=== PATIENT | male | born 1965 | race Caucasian/White ===

== ENCOUNTER 2023-02-08 08:15 | Outpatient (OUT) | payer OTHER, SELFPAY ==
[2023-02-08 08:37] LABS: Basophils Percent Auto 0.4 % (0.2-2.0); Eosinophils Absolute Auto 0.3 10^3/uL (0.0-0.7); Eosinophils Percent Auto 3.4 % (0.9-7.0); Hematocrit 44.4 % (42.0-54.0); Hemoglobin 14.9 g/dL (14.0-18.0); Immature Granulocytes Abs Auto 0.02 10^3/uL (0.00-0.03); Immature Granulocytes Pct Auto 0.2 % (0.0-0.5); Lymphocytes Absolute Auto 2.6 10^3/uL (1.2-3.8); Lymphocytes Percent Auto 27.1 % (20.5-60.0); Mean Corpuscular HGB Conc 33.6 g/dL (29.9-35.2); Mean Corpuscular Hemoglobin 31.3 pg (25.9-34.0); Mean Corpuscular Volume 93.3 fL (80.0-94.0); Mean Platelet Volume 9.8 fL (9.5-13.5); Monocytes Absolute Auto 0.9 10^3/uL (0.3-0.8); Monocytes Percent Auto 8.9 % (1.7-12.0); Neutrophils Absolute Auto 5.8 10^3/uL (1.4-6.5); Platelet Count 466 10^3/uL (150-450); Red Blood Count 4.76 10^6/uL (4.70-6.10); Red Cell Distribution Width 11.9 % (11.0-15.0); White Blood Count 9.6 10^3/uL (4.0-11.0)
[2023-02-08 09:14] LABS: Estimated Average Glucose 171 mg/dL; Glycohemoglobin A1C 7.6 % (4.5-6.2)
[2023-02-08 10:18] LABS: Prostate Specific Antigen Scrn 0.56 ng/mL (<=4.00)
[2023-02-08 11:32] LABS: Alanine Aminotransferase 39 U/L (16-63); Albumin Globulin Ratio 0.9; Albumin Level 3.9 g/dL (3.4-5.0); Alkaline Phosphatase 40 U/L (46-116); Anion Gap 13.5; Aspartate Amino Transferase 14 U/L (15-37); BUN Creatinine Ratio 17.3; Bilirubin Direct 0.1 mg/dL (0.0-0.2); Bilirubin Total 0.4 mg/dL (0.2-1.0); Calcium 9.3 mg/dL (8.5-10.1); Carbon Dioxide 28.8 mmol/L (21.0-32.0); Chloride 103 mmol/L (98-107); Chol HDL Ratio 3.9; Cholesterol 157 mg/dL (<=200); Estimated GFR (African America >60 (>=60); Estimated GFR (Non-African Ame >60 (>=60); Globulin 4.3 g/dL; Glucose 162 mg/dL (74-106); HDL Cholesterol 40 mg/dL (40-60); LDL Cholesterol Calculated 87.4 mg/dL; Potassium 4.3 mmol/L (3.5-5.1); Sodium 141 mmol/L (136-145); Thyroid Stimulating Hormone 1.124 uIU/mL (0.358-3.740); Total Protein 8.2 g/dL (6.4-8.2); Triglycerides 148 mg/dL (<=150); VLDL CHOLESTEROL 29.6 mg/dL
== END 2023-02-08 08:16 | disposition home or self-care (01) ==
LOC: LAB 08:18
PROVIDERS: PCP Family Medicine; Visit Provider Family Medicine
DX: Z00.00 Encounter for general adult medical examination without abnormal findings (principal)
CPT/HCPCS: 36415; 80048; 80061; 80076; 83036; 84443; 85025; G0103

== ENCOUNTER 2023-08-19 07:25 | Outpatient (OUT) | payer OTHER, SELFPAY ==
--- OUTSIDE RECORDS SUMMARY | 2023-08-19 07:29 | XMS_ITS | CCD ---
Author Organization [facility] Care Team Providers Care Computer Game Programmer Name Role Phone KAROLINE MOSER Consulting Unavailable KAROLINE MOSER Attending Unavailable KAROLINE MOSER Admitting Unavailable KAROLINE MOSER Primary Care Unavailable KAROLINE MOSER Primary Care Unavailable KAROLINE MOSER Consulting Unavailable KAROLINE MOSER Attending Unavailable KAROLINE MOSER Admitting Unavailable Shirin Flanagan Unavailable JENNIFER SEAMAN Attending Unavailable KAROLINE MOSER Referring Unavailable WILLIAM LALA Attending Unavailable WILLIAM LALA Attending Unavailable KAROLINE MOSER Attending Unavailable Medications Current Medications Medication Drug Class(es) Dates Sig (Normalized) Sig (Original) acetaminophen 325 mg oral tablet (1 source) take 1 tablet by mouth every four hours Tylenol 325 MG 1 tablet as needed Orally every 4 hrs Active atorvastatin 40 mg oral tablet (1 source) HMG-CoA Reductase Inhibitor take 1 tablet by mouth every twenty-four hours Atorvastatin Calcium 40 MG 1 tablet Orally Once a day Active cetirizine hydrochloride 10 mg oral tablet (1 source) Histamine-1 Receptor Antagonist take 1 tablet by mouth every twenty-four hours Cetirizine HCl 10 MG 1 tablet Orally Once a day Active fluticasone propionate 0.5 mg/ml topical lotion (1 source) Corticosteroid Start: 03-28-2023 Fluticasone Propionate 0.05 % 2 sprays Nasally Once a day for 14 days Apply to the rash twice a day until the rash is gone and then apply for 2 more days Mar, Active lisinopril 20 mg oral tablet (1 source) Angiotensin Converting Enzyme Inhibitor take 1 tablet by mouth every twenty-four hours Lisinopril 20 MG 1 tablet Orally Once a day Active montelukast 10 mg oral tablet (1 source) Leukotriene Receptor Antagonist take 1 tablet by mouth every twenty-four hours Montelukast Sodium 10 MG 1 tablet Orally Once a day Active Multivitamin preparation (1 source) Multivitamin Active omeprazole 20 mg delayed release oral capsule (1 source) Proton Pump Inhibitor take 1 capsule by mouth once daily Omeprazole 20 MG 1 capsule 30 minutes before morning meal Orally Once a day Active terbinafine hydrochloride 10 mg/ml topical cream (1 source) Allylamine Antifungal Start: 03-28-2023 Terbinafine HCl 1 % 1 application Externally Once a day for 14 days Mar, Active Turmeric extract (1 source) Turmeric Active Vitamin B Complex (1 source) Vitamin B Comple x - as directed Orally Active Completed/Discontinued Medications Medication Drug Class(es) Dates Sig (Normalized) Sig (Original) Gentamicin Sulfate (ALF) (1 source) Start: 09-04-2013 take 1 drop(s) into the eye(s) three times daily as needed Garamycin 0.3 % 1 drop into affected eye Ophthalmic Three times a day for 7 days Aug, Not-Taking/PRN Problems Active Problems Problem Classification Problem Date Documented Da te Episodic/Chronic Diabetes mellitus with complications (4 sources) Type 2 diabetes mellitus with hyperglycemia; Translations: [TYPE 2 DM W/HYPERGLYCEMIA] Onset: 06-19-2022 Chronic Mycoses (1 source) Tinea cruris Episodic Other lower respiratory disease (1 source) Personal history of other diseases of the respiratory system Episodic Past or Other Problems Problem Classification Problem Date Documented Da te Episodic/Chronic Other screening for suspected conditions (not mental disorders or infectious disease) (1 source) Encounter for screening for malignant neoplasm of prostate; Translations: [ENC SCREEN MALIG NEOPLASM PROSTATE] Onset: 11-29-2021 Episodic Results Test Name Value Interpretation Reference Range Facil ity GLYCOHEMOGLOBIN A1Con 2022 ADA RECOMMENDATION SEE BELOW Normal [facility] Comment on above: Result Comment: ADA RECOMMENDED LIMIT 4.0 - 6.0 ADA THERAPEUTIC TARGET < 7.0 ACTION SUGGESTED > 7.0 Performed By: #### A 1C #### [facility] [address] [place], [place] [address] Dr. Natalie Espinoza Glucose [Mass/Vol] 174 mg/dL Normal [facility] Comment on above: Performed By: #### A 1C #### [facility] [address] [place] [address] Dr. Natalie Espinoza HbA1c (Bld) [Mass fraction] 7.7 % Critically high 4.5-6.2 [facility] Comment on above: Performed By: #### A 1C #### [facility] [address] [place] [address] Dr. Natalie Espinoza CBC AUTO DIFFon 11-24-2021 BASO # 0.1 103/ul Normal 0.0-0.1 [facility] Comment on above: Performed By: #### C BC #### [facility] [address] [place] [address] Dr. Natalie Espinoza Basophils/100 WBC (Bld) 0.6 % Normal 0.2-2.0 [facility] Comment on above: Performed By: #### C BC #### [facility] [address] [place] [address] Dr. Natalie Espinoza EO # 0.2 103/ul Normal 0.0-0.7 [facility] Comment on above: Performed By: #### C BC #### [facility] [address] [place] [address] Dr. Natalie Espinoza Eosinophils/100 WBC (Bld) 2.3 % Normal 0.9-7.0 [facility] Comment on above: Performed By: #### C BC #### [facility] [address] [place] [address] Dr. Natalie Espinoza Erythrocyte distribution width (RBC) [Ratio] 12.2 % Normal 11.0-15.0 [facility] Comment on above: Performed By: #### C BC #### [facility] [address] [place] [address] Dr. Natalie Espinoza Hematocrit (Bld) [Volume fraction] 42.1 % Normal 42.0-54.0 [facility] Comment on above: Performed By: #### C BC #### [facility] [address] [place] [address] Dr. Natalie Espinoza Hemoglobin (Bld) [Mass/Vol] 13.9 g/dL Critically low 14.0-18.0 [facility] Comment on above: Performed By: #### C BC #### [facility] [address] [place] [address] Dr. Natalie Espinoza IG # 0.03 10e3/ul Normal 0.00-0.03 [facility] Comment on above: Performed By: #### C BC #### [facility] [address] [place] [address] Dr. Natalie Espinoza IG % 0.3 % Normal 0.0-0.5 [facility] Comment on above: Performed By: #### C BC #### [facility] [address] [place] [address] Dr. Natalie Espinoza LYMPH # 3.3 103/ul Normal 1.2-3.8 [facility] Comment on above: Performed By: #### C BC #### [facility] [address] [place] [address] Dr. Natalie Espinoza Lymphocytes/100 WBC (Bld) 32.2 % Normal 20.5-60.0 [facility] Comment on above: Performed By: #### C BC #### [facility] [address] [place] [address] Dr. Natalie Espinoza MANUAL DIFF REQ NO Normal [facility] Comment on above: Performed By: #### C BC #### [facility] [address] [place] [address] Dr. Natalie Espinoza MCH (RBC) [Entitic mass] 30.9 pg Normal 25.9-34.0 [facility] Comment on above: Performed By: #### C BC #### [facility] [address] [place] [address] Dr. Natalie Espinoza MCHC (RBC) [Mass/Vol] 33.0 g/dL Normal 29.9-35.2 [facility] Comment on above: Performed By: #### C BC #### [facility] [address] [place] [address] Dr. Natalie Espinoza MCV (RBC) [Entitic vol] 93.6 fL Normal 80.0-94.0 [facility] Comment on above: Performed By: #### C BC #### [facility] [address] [place] [address] [address] Natalie Espinoza MONO # 1.1 103/ul Critically high 0.3-0.8 [facility] Comment on above: Performed By: #### C BC #### [facility] [address] [place] [address] Dr. Natalie Espinoza Monocytes/100 WBC (Bld) 10.9 % Normal 1.7-12.0 [facility] Comment on above: Performed By: #### C BC #### [facility] [address] [place] [address] Dr. Natalie Espinoza NEUT # 5.5 103/ul Normal 1.4-6.5 [facility] Comment on above: Performed By: #### C BC #### [facility] [address] [place] [address] Dr. Natalie Espinoza Neutrophils/100 WBC (Bld) 53.7 % Normal 43.0-75.0 [facility] Comment on above: Performed By: #### C BC #### [facility] [address] [place] [address] Dr. Natalie Espinoza Platelet mean volume (Bld) [Entitic vol] 11.2 fL Normal 9.5-13.5 [facility] Comment on above: Performed By: #### C BC #### [facility] [address] [place] [address] Dr. Natalie Espinoza PLT 423 103/ul Normal 150-450 [facility] Comment on above: Performed By: #### C BC #### [facility] [address] [place] [address] Dr. Natalie Espinoza RBC 4.50 106/ul Critically low 4.70-6.10 [facility] Comment on above: Performed By: #### C BC #### [facility] [address] [place] [address] Dr. Natalie Espinoza WBC 10.3 103/ul Normal 4.0-11.0 [facility] Comment on above: Performed By: #### C BC #### [facility] [address] [place] [address] Dr. Natalie Espinoza GLYCOHEMOGLOBIN A1Con 09-06- 2022 ADA RECOMMENDATION SEE BELOW Normal [facility] Comment on above: Result Comment: ADA RECOMMENDED LIMIT 4.0 - 6.0 ADA THERAPEUTIC TARGET < 7.0 ACTION SUGGESTED > 7.0 Performed By: #### A 1C #### [facility] [address] [place] [address] [address] Natalie Espinoza Glucose [Mass/Vol] 163 mg/dL Normal [facility] Comment on above: Performed By: #### A 1C #### [facility] [address] [place] [address] [address] Natalie Espinoza HbA1c (Bld) [Mass fraction] 7.3 % Critically high 4.5-6.2 [facility] Comment on above: Performed By: #### A 1C #### [facility] [address] [place] [address] Dr. Natalie Espinoza LIPID PROFILEon 11-24-2021 CHOL-HDL RATIO NORM SEE BELOW Normal [facility] Comment on above: Result Comment: 3.3 - 4.4 LOW RISK 4.4 - 7.1 AVERAGE RISK 7.1 - 11.0 MODERATE RISK >11.0 HIGH RISK Performed By: #### L IPID, LIVER, BMP, TSH #### [facility] [address] [place] [address] [address] Natalie Espinoza Cholesterol [Mass/Vol] 134 mg/dL Normal <=200 [facility] Comment on above: Performed By: #### L IPID, LIVER, BMP, TSH #### [facility] [address] [place] [address] [address] Natalie Espinoza Cholesterol in HDL [Mass/Vol] 33 mg/dL Critically low 40-60 [facility] Comment on above: Performed By: #### L IPID, LIVER, BMP, TSH #### [facility] [address] [place] [address] [address] Natalie Espinoza Cholesterol in LDL [Mass/Vol] 56.6 mg/dL Normal [facility] Comment on above: Performed By: #### L IPID, LIVER, BMP, TSH #### [facility] [address] [place] [address] [address] Natalie Espinoza Cholesterol.total/Cho lesterol in HDL [Mass ratio] 4.1 {ratio} Normal [facility] Comment on above: Performed By: #### L IPID, LIVER, BMP, TSH #### [facility] [address] [place] [address] [address] Natalie Espinoza HDL NORMAL > or = 60 mg/dl - LOW CARDIOVASCULAR RISK <40 mg/dl - HIGH CARDIOVASCULAR RISK Normal [facility] Comment on above: Performed By: #### L IPID, LIVER, BMP, TSH #### [facility] [address] [place] [address] [address] Natalie Espinoza LDL CALC NORMAL SEE BELOW Normal [facility] Comment on above: Result Comment: <100 mg/dl OPTIMAL 100 - 129 mg/dl NEAR OR ABOVE OPTIMAL 130 - 159 mg/dl BORDERLINE HIGH 160 - 189 mg/dl HIGH >190 mg/dl VERY HIGH Performed By: #### L IPID, LIVER, BMP, TSH #### [facility] [address] [place] [address] [address] Natalie Espinoza Triglyceride [Mass/Vol] 222 mg/dL Critically high <=150 [facility] Comment on above: Performed By: #### L IPID, LIVER, BMP, TSH #### [facility] [address] [place] [address] [address] Natalie Espinoza VLDL CALC 44.4 mg/dL Normal [facility] Comment on above: Performed By: #### L IPID, LIVER, BMP, TSH #### [facility] [address] [place] [address] [address] Natalie Espinoza LIVER PROFILEon 11-24-2021 Albumin [Mass/Vol] 4.0 g/dL Normal 3.4-5.0 [facility] Comment on above: Performed By: #### L IPID, LIVER, BMP, TSH #### [facility] [address] [place] [address] [address] Natalie Espinoza Albumin/Globulin [Mass ratio] 1.1 {ratio} Normal [facility] Comment on above: Performed By: #### L IPID, LIVER, BMP, TSH #### [facility] [address] [place] [address] [address] Natalie Espinoza ALP [Catalytic activity/Vol] 61 U/L Normal 46-116 [facility] Comment on above: Performed By: #### L IPID, LIVER, BMP, TSH #### [facility] [address] [place] [address] [address] Natalie Espinoza ALT [Catalytic activity/Vol] 37 U/L Normal 16-63 [facility] Comment on above: Performed By: #### L IPID, LIVER, BMP, TSH #### [facility] [address] [place] [address] [address] Natalie Espinoza AST [Catalytic activity/Vol] 12 U/L Critically low 15-37 [facility] Comment on above: Performed By: #### L IPID, LIVER, BMP, TSH #### [facility] [address] [place] [address] Dr. Natalie Espinoza BILI, CONJUGATED 0.1 mg/dL Normal 0.0-0.2 [facility] Comment on above: Performed By: #### L IPID, LIVER, BMP, TSH #### [facility] [address] [place] [address] [address] Natalie Espinoza Bilirubin [Mass/Vol] 0.2 mg/dL Normal 0.2-1.0 [facility] Comment on above: Performed By: #### L IPID, LIVER, BMP, TSH #### [facility] [address] [place] [address] [address] Natalie Espinoza Globulin (S) [Mass/Vol] 3.8 g/dL Normal [facility] Comment on above: Performed By: #### L IPID, LIVER, BMP, TSH #### [facility] [address] [place] [address] [address] Natalie Espinoza Protein [Mass/Vol] 7.8 g/dL Normal 6.4-8.2 [facility] Comment on above: Performed By: #### L IPID, LIVER, BMP, TSH #### [facility] [address] [place] [address] [address] Natalie Espinoza PROF CHEM 8 (BAS METB)on Anion gap [Moles/Vol] 12.4 mmol/L Normal Th [facility] Comment on above: Performed By: #### L IPID, LIVER, BMP, TSH #### [facility] [address] [place] [address] [address] Natalie Espinoza Calcium [Mass/Vol] 9.1 mg/dL Normal 8.5-10.1 [facility] Comment on above: Performed By: #### L IPID, LIVER, BMP, TSH #### [facility] [address] [place] [address] [address] Natalie Espinoza Chloride [Moles/Vol] 105 mmol/L Normal 98-107 [facility] Comment on above: Performed By: #### L IPID, LIVER, BMP, TSH #### [facility] [address] [place] [address] Dr. Natalie Espinoza CO2 [Moles/Vol] 27.8 mmol/L Normal 21.0-32.0 [facility] Comment on above: Performed By: #### L IPID, LIVER, BMP, TSH #### [facility] [address] [place] [address] [address] Natalie Espinoza Creatinine [Mass/Vol] 1.09 mg/dL Normal 0.70-1.30 [facility] Comment on above: Performed By: #### L IPID, LIVER, BMP, TSH #### [facility] [address] [place] [address] Dr. Natalie Espinoza EGFR-AF TOGOLESE >60 Normal >=60 [facility] Comment on above: Performed By: #### L IPID, LIVER, BMP, TSH #### [facility] [address] [place] [address] Dr. Natalie Espinoza EGFR-NON AF TOGOLESE >60 Normal >=60 [facility] Comment on above: Performed By: #### L IPID, LIVER, BMP, TSH #### [facility] [address] [place] [address] [address] Natalie Espinoza Glucose [Mass/Vol] 199 mg/dL Critically high 74-106 T [facility] Comment on above: Performed By: #### L IPID, LIVER, BMP, TSH #### [facility] [address] [place] [address] [address] Natalie Espinoza Potassium [Moles/Vol] 4.2 mmol/L Normal 3.5-5.1 [facility] Comment on above: Performed By: #### L IPID, LIVER, BMP, TSH #### [facility] [address] [place] [address] Dr. Natalie Espinoza Sodium [Moles/Vol] 141 mmol/L Normal 136-145 [facility] Comment on above: Performed By: #### L IPID, LIVER, BMP, TSH #### [facility] [address] [place] [address] [address] Natalie Espinoza Urea nitrogen [Mass/Vol] 12.0 mg/dL Normal 7.0-18.0 [facility] Comment on above: Performed By: #### L IPID, LIVER, BMP, TSH #### [facility] [address] [place] [address] Dr. Natalie Espinoza Urea nitrogen/Creatinine [Mass ratio] 11.0 mg/mg Normal [facility] Comment on above: Performed By: #### L IPID, LIVER, BMP, TSH #### [facility] [address] [place] [address] Dr. Natalie Espinoza TSHon 11-24-2021 TSH 1.580 uIU/mL Normal 0.358-3.740 [facility] Comment on above: Performed By: #### L IPID, LIVER, BMP, TSH #### [facility] [address] [place] [address] Dr. Natalie Espinoza Vital Signs Date Time Vital Sign Value Performing Clinician Facility 03-28-2023 10:45-0500 Body height 180.34 cm Shirin Flanagan Other [facility] Other 03-28-2023 10:45-0500 Body mass index (BMI) [Ratio] 36.31 kg/m2 Shirin Flanagan Other [facility] Other 03-28-2023 10:45-0500 Body temperature 97.8 [degF] Shirin Flanagan Other [facility] Other 03-28-2023 10:45-0500 Body weight 118.12 kg Shirin Flanagan Other [facility] Other 03-28-2023 10:45-0500 Respiratory rate 18 /min Shirin Flanagan Other [facility] Other 03-28-2023 10:45-0500 SaO2% (BldA) [Mass fraction] 99 % Shirin Senamond Other [facility] Other Encounters Encounter Date Encounter Type Care Provider Facility Start: 08-11-2023 End: 08-11-2023 ambulatory KAROLINE MOSER Not Available Start: 04-07-2023 End: 04-07-2023 ambulatory WILLIAM LALA Not Available Start: 03-30-2023 End: 03-30-2023 ambulatory JENNIFER SEAMAN Not Available Start: 03-28-2023 End: 03-28-2023 ambulatory Shirin Flanagan Other [facility] Other Start: 03-28-2023 Office outpatient ne w 20 minutes Shirin Flanagan [facility] Start: 03-03-2023 End: 03-03-2023 ambulatory WILLIAM LALA Not Available Start: 06-19-2022 End: 06-20-2022 ambulatory KAROLINE RODRÍGUEZERER Facility:[facility] Start: 11-29-2021 Encounter for genera l adult medical examination without abnormal findings KAROLINE MOSER [facility] Start: 11-24-2021 End: 11-25-2021 ambulatory KAROLINE A ANNEERER Facility:[facility] Start: 11-24-2021 End: 11-25-2021 Encounter for general adult medical examination without abnormal findings KAROLINE MOSER Facility:[facility] Procedures Date Procedure Procedure Detail Performing Clinician Start: 09-06-2022 PSA screening KAROLINE NADE RER Comment on above: Performed By: #### P [facility] #### [facility] [address] [place], [place] [address] Dr. Natalie Espinoza Payers Date Payer Category Payer Unknown [id number] 2.16.8 [id number] 1965 Unknown [id number] 2.16.84 [id number] 1965 Unknown [id number] 2.16.84 [id number] 1965 Unknown [id number] 2.16.84 [id number] 1965 Unknown [id number] 2.16.84 [id number] 1965 Unknown [id number] 2.16.84 [id number] 1965 Unknown [id number] 1959 Unknown [id number] 1959 Unknown [id number] Social History Date Type Detail Facility Unknown if ever smoked [facility] Other Sex Assigned At Sex Assigned At Bir th [facility] Other Evaluation note 03-28-2023 Note Date & Type Note Facility 03-28-2023 Evaluation note Encounter Date Diagnosis Assessment Notes Mar, History of sinusitis (ICD-10 - Z87.09) Drink plenty fluids, get plenty of rest. Use the fluticasone nasal spray as prescribed until you see your ENT. Follow-up with your ENT as scheduled. Use the terbinafine cream as prescribed for the rash in your groin area. Follow-up with your family physician if no improvement in this rash in 2 to 3 days. Mar, Tinea cruris (ICD-10 - B35.6) [facility] material was printed [facility] Other History general Narrative - Reported Note Date & Type Note Facility History general Narrative - Reported Type Medical History high blood pressure Medical History high cholesterol Surgical History hand surgery right thumb Hospitalization History See Above [facility] Other Summary Purpose Family History No Family History Records FoundNo Family History Records Found Advance Directives No Advanced Directives Records FoundNo Advanced Directives Records Found Additional Source Comments (unrecognized sect ion and content) No Status Records FoundNo Status Records Found INFORMATION SOURCE (unrecogn ized section and content) DATE CREATED AUTHOR 06/26/2022 [facility] DATE CREATED AUTHOR AUTHOR'S ORGANIZ ATION 08/14/2023 [facility] EPIC REASON FOR VISIT (unrecogniz ed section and content) NAUSEA, COUGH, SINUS CONGEST ION, POSS ABCESS INNER THIGH FOR RECORDS PERTAINING TO PATIENTS WHO ARE OR HAVE BEEN ENROLLED IN A CHEMICAL DEPENDENCY/SUBSTANCEABUSE PROGRAM, SOME INFORMATION MAY BE OMITTED. This clinical summary was aggregated from multiple sources. Caution should be exercised in using it in the provision of clinical care. This summary normalizes information from multiple sources, and as a consequence, information in this document may materially change the coding, format and clinical context of patient data. In addition, data may be omitted in some cases. CLINICAL DECISIONS SHOULD BE BASED ON THE PRIMARY CLINICAL RECORDS. [employer] provides no warranty or guarantee of the accuracy or completeness of information in this document.
[2023-08-19 08:04] LABS: Microalbumin Urine Random <1.3 mg/dL (<=30.0)
[2023-08-19 09:27] LABS: Estimated Average Glucose 151 mg/dL; Glycohemoglobin A1C 6.9 % (4.5-6.2)
== END 2023-08-19 07:26 | disposition home or self-care (01) ==
LOC: LAB 07:27
PROVIDERS: PCP Family Medicine; Visit Provider Family Medicine
DX: E11.65 Type 2 diabetes mellitus with hyperglycemia (principal)
CPT/HCPCS: 36415; 82043; 83036

== ENCOUNTER 2024-02-17 07:34 | Outpatient (OUT) | payer OTHER, SELFPAY ==
--- OUTSIDE RECORDS SUMMARY | 2024-02-17 07:39 | XMS_ITS | CCD ---
Author Organization [facility] Care Team Providers Care Hospice Educator Name Role Phone WALTER MOSER Consulting Unavailable WALTER MOSER Attending Unavailable EHSAN, WALTER Ceballos Admitting Unavailable EHSAN, WALTER Ceballos Primary Care Unavailable EHSAN, WALTER Ceballos Primary Care Unavailable WALTER MOSER Consulting Unavailable EHSAN, WALTER Ceballos Attending Unavailable EHSAN, WALTER Ceballos Admitting Unavailable Shirin Flanagan Unavailable JENNIFER SEAMAN Attending Unavailable WALTER MOSER Referring Unavailable WILLIAM LALA Attending Unavailable WILLIAM LALA Attending Unavailable EHSAN, WALTER Attending Unavailable EHSAN, WALTER Attending Unavailable Walter Moser MD Primary Care Provider Medications Current Medications Medication Drug Class(es) Dates Sig (Normalized) Sig (Original) acetaminophen 325 mg oral tablet (1 source) take 1 tablet by mouth every four hours Tylenol 325 MG 1 tablet as needed Orally every 4 hrs Active amoxicillin 875 mg / clavulanate 125 mg oral tablet (2 sources) Penicillin-class Antibacterial Start: 01-31-2024 End: 02-10-2024 take 1 tablet by mouth in the morning amoxicillin-clavul anate (Augmentin) 875-125 MG tablet Indications: Acute non-recurrent pansinusitis Take 1 tablet (875 mg) by mouth in the morning and 1 tablet (875 mg) before bedtime. Do all this for 10 days. 20 tablet 01/31/2024 02/10/2024 Active atorvastatin 40 mg oral tablet (4 sources) HMG-CoA Reductase Inhibitor Start: 11-14-2023 take 1 tablet by mouth at bedtime atorvastatin (Lipitor) 40 MG tablet Indications: Dyslipidemia (CMS/HCC) TAKE 1 TABLET BY MOUTH AT BEDTIME 30 tablet 5 11/14/2023 Active take 1 tablet by germán th every twenty-four hours Atorvastatin Calcium 40 MG 1 tablet Oral ly Once a day Active cetirizine hydrochloride 10 mg oral tablet (4 sources) Histamine-1 Receptor Antagonist take 1 tablet by mouth in the morning cetirizine (ZyrTEC) 10 MG tablet Take 10 mg by mouth in the morning. Active fluticasone propionate 0.5 mg/ml topical lotion (1 source) Corticosteroid Start: 03-28-19 Fluticasone Propionate 0.05 % 2 sprays Nasally Once a day for 14 days Apply to the rash twice a day until the rash is gone and then apply for 2 more days Mar, Active ipratropium bromide 0.042 mg/actuat metered dose nasal spray (5 sources) Anticholinergic Start: 01-31-20 take 2 spray(s) nasal route in the morning, then take 2 spray(s) nasal route in the evening, then take 2 spray(s) nasal route at bedtime ipratropium (Atrovent) 0.06 % nasal spray Indications: Vasomotor rhinitis Administer 2 sprays into each nostril in the morning and 2 sprays in the evening and 2 sprays before bedtime. 45 mL 5 01/31/2024 Active Start: 01-11-2024 End: 01-31-2024 take 2 spray(s) nasal route once daily at bedtime ipratropium (Atrovent) 0.06 % nasal spray Indications: Vasomotor rhinitis INSTILL 2 SPRAYS INTO EACH NOSTRIL EVERY MORNING AND EVERY EVENING AND EVERY NIGHT AT BEDTIME 15 mL 5 01/11/2024 01/31/2024 Discontinued (Reorder) montelukast 10 mg oral tablet (4 sources) Leukotriene Receptor Antagonist Start: 01-17-2024 take 1 tablet by mouth at bedtime montelukast (Singulair) 10 MG tablet Indications: Seasonal allergic rhinitis due to pollen Take 1 tablet (10 mg) by mouth at bedtime 30 tablet 1 01/17/2024 Active take 1 tablet by germán th every twenty-four hours Montelukast Sodium 10 MG 1 tablet Orally Once a day Active Multivitamin preparation (1 source) Multivitamin Act adela omeprazole 20 mg delayed release oral tablet (4 sources) Proton Pump Inhibitor take 1 tablet by mouth before mealtime omeprazole OTC (PriLOSEC OTC) 20 MG EC tablet Take 20 mg by mouth in the morning. Take before meals. Do not crush, chew, or split. . Active take 1 capsule by mouth once dasha ly Omeprazole 20 MG 1 capsule 30 minutes [...] Dates Sig (Normalized) Sig (Original) Gentamicin Sulfate (GROUP HOME) (1 source) Start: 09-04-2013 take 1 drop(s) into the eye(s) three times daily as needed Garamycin 0.3 % 1 drop into affected eye Ophthalmic Three times a day for 7 days Aug, Not-Taking/PRN lisinopril 20 mg oral tablet (4 sources) Angiotensin Converting Enzyme Inhibitor Start: 08-16-2023 End: 02-06-2024 take 1 tablet by mouth once daily lisinopril 20 MG tablet Indications: Benign hypertension (CMS/HCC) TAKE 1 TABLET BY MOUTH DAILY 30 tablet 5 08/16/2023 02/06/2024 Discontinued take 1 tablet by germán th every twenty-four hours Lisinopril 20 MG 1 tablet Orally Once a day Active predniSONE 50 mg oral tablet (2 sources) Start: 01-31-2024 End: 02-06-2024 take 1 tablet by mouth once daily predniSONE (Deltasone) 50 MG tablet Indications: Acute non-recurrent pansinusitis Take 1 tablet (50 mg) by mouth Daily for 6 days 6 tablet 01/31/2024 02/06/2024 Problems Active Problems Problem Classification Problem Date Documented Date Episodic/Chronic Diabetes mellitus with complications (9 sources) Type 2 diabetes mellitus with hyperglycemia; Translations: [Hyperglycemia due to type 2 diabetes mellitus] Onset: 06-19-2022 Chronic Disorders of lipid metabolism (5 sources) Dyslipidemia; Translations: [Hyperlipidemia, unspecified] Onset: 01-31-2024 01-31-2024 Chronic Esophageal disorders (3 sources) Gastroesophageal reflux disease; Translations: [Gastro-esophageal reflux disease without esophagitis] Onset: 02-17-2023 02-17-2023 Chronic Essential hypertension (3 sources) Benign hypertension; Translations: [Essential (primary) hypertension] Onset: 02-17-2023 02-17-2023 Chronic Mycoses (1 source) Tinea cruris Episodic Other lower respiratory disease (1 source) Personal history of other diseases of the respiratory system Episodic Other nutritional; endocrine; and metabolic disorders (5 sources) Severe obesity; Translations: [Class 2 severe obesity due to excess calories with serious comorbidity and body mass index (BMI) of 35.0 to 35.9 in adult] Onset: 01-31-2024 01-31-2024 Chronic Other upper respiratory disease (3 sources) Allergic rhinitis due to pollen; Translations: [Allergic rhinitis due to pollen] Onset: 02-17-2023 02-17-2023 Chronic Other upper respiratory disease (5 sources) Vasomotor rhinitis; Translations: [Vasomotor rhinitis] Onset: 03-30-2023 03-30-2023 Chronic Other upper respiratory infections (5 sources) Acute pansinusitis; Translations: [Acute pansinusitis, unspecified] Onset: 01-31-2024 01-31-2024 Episodic Spondylosis; intervertebral disc disorders; other back problems (3 sources) Degeneration of lumbar intervertebral disc; Translations: [DDD (degenerative disc disease), lumbar] Onset: 02-17-2023 02-17-2023 Chronic Past or Other Problems Problem Classification Problem Date Documented Da te Episodic/Chronic Acquired foot deformities (3 sources) Acquired pes planus; Translations: [Flat foot [pes planus] (acquired), unspecified foot] Onset: 02-17-2023 02-17-2023 Episodic Other screening for suspected conditions (not mental disorders or infectious disease) (1 source) Encounter for screening for malignant neoplasm of prostate; Translations: [ENC SCREEN MALIG NEOPLASM PROSTATE] Onset: 11-29-2021 Episodic Results Test Name Value Interpretation Reference Range Facil ity GLYCOHEMOGLOBIN A1Con 2022 ADA RECOMMENDATION SEE BELOW Normal [facility] Comment on above: Result Comment: ADA RECOMMENDED LIMIT 4.0 - 6.0 ADA THERAPEUTIC TARGET < 7.0 ACTION SUGGESTED > 7.0 Performed By: #### A 1C #### [facility] [address] [place] [address] Dr. Natalie Espinoza Glucose [Mass/Vol] 174 mg/dL Normal [facility] Comment on above: Performed By: #### A 1C #### [facility] [address] [place] [address] Dr. Natalie Espinoza HbA1c (Bld) [Mass fraction] 7.7 % Critically high 4.5-6.2 [facility] Comment on above: Performed By: #### A 1C #### [facility] [address] [place] [address] Dr. Natalie Espinoza CBC AUTO DIFFon 11-24-2021 BASO # 0.1 103/ul Normal 0.0-0.1 [facility] Comment on above: Performed By: #### C BC #### [facility] [address] [place] [address] Dr. Natalie Espinoza Basophils/100 WBC (Bld) 0.6 % Normal 0.2-2.0 [facility] Comment on above: Performed By: #### C BC #### [facility] [address] [place] [address] Dr. Natalie Espinoza EO # 0.2 103/ul Normal 0.0-0.7 [facility] Comment on above: Performed By: #### C BC #### [facility] [address] [place] [address] Dr. Natalie Espinoza Eosinophils/100 WBC (Bld) 2.3 % Normal 0.9-7.0 [facility] Comment on above: Performed By: #### C BC #### [facility] [address] [place] [address] Dr. Natalie Espinoza Erythrocyte distribution width (RBC) [Ratio] 12.2 % Normal 11.0-15.0 [facility] Comment on above: Performed By: #### C BC #### [facility] [address] [place] [address] Dr. Natalie Espinoza Hematocrit (Bld) [Volume fraction] 42.1 % Normal 42.0-54.0 [facility] Comment on above: Performed By: #### C BC #### [facility] [address] [place] [address] Dr. Natalie Espinoza Hemoglobin (Bld) [Mass/Vol] 13.9 g/dL Critically low 14.0-18.0 [facility] Comment on above: Performed By: #### C BC #### [facility] [address] [place] [address] Dr. Natalie Espinoza IG # 0.03 10e3/ul Normal 0.00-0.03 [facility] Comment on above: Performed By: #### C BC #### [facility] [address] [place] [address] Dr. Natalie Espinoza IG % 0.3 % Normal 0.0-0.5 [facility] Comment on above: Performed By: #### C BC #### [facility] [address] [place] [address] Dr. Naatlie Espinoza LYMPH # 3.3 103/ul Normal 1.2-3.8 [facility] Comment on above: Performed By: #### C BC #### [facility] [address] [place] [address] Dr. Natalie Espinoza Lymphocytes/100 WBC (Bld) 32.2 % Normal 20.5-60.0 [facility] Comment on above: Performed By: #### C BC #### [facility] [address] [place] [address] Dr. Natalie Espinoza MANUAL DIFF REQ NO Normal [facility] Comment on above: Performed By: #### C BC #### [facility] [address] [place] [address] Dr. Natalie Espinoza MCH (RBC) [Entitic mass] 30.9 pg Normal 25.9-34.0 [facility] Comment on above: Performed By: #### C BC #### [facility] [address] [place] [address] Dr. Natalie Espinoza MCHC (RBC) [Mass/Vol] 33.0 g/dL Normal 29.9-35.2 [facility] Comment on above: Performed By: #### C BC #### [facility] [address] [place] [address] Dr. Natalie Espinoza MCV (RBC) [Entitic vol] 93.6 fL Normal 80.0-94.0 [facility] Comment on above: Performed By: #### C BC #### [facility] [address] [address] [address] Natalie Espinoza MONO # 1.1 103/ul Critically high 0.3-0.8 [facility] Comment on above: Performed By: #### C BC #### [facility] [address] [address] [address] Natalie Espinoza Monocytes/100 WBC (Bld) 10.9 % Normal 1.7-12.0 [facility] Comment on above: Performed By: #### C BC #### [facility] [address] [place] [address] Dr. Natalie Espinoza NEUT # 5.5 103/ul Normal 1.4-6.5 [facility] Comment on above: Performed By: #### C BC #### [facility] [address] [place] [address] Dr. Natalie Espinoza Neutrophils/100 WBC (Bld) 53.7 % Normal 43.0-75.0 [facility] Comment on above: Performed By: #### C BC #### [facility] [address] [place] [address] Dr. Natalie Espinoza Platelet mean volume (Bld) [Entitic vol] 11.2 fL Normal 9.5-13.5 [facility] Comment on above: Performed By: #### C BC #### [facility] [address] [place] [address] Dr. Natalie Espinoza PLT 423 103/ul Normal 150-450 [facility] Comment on above: Performed By: #### C BC #### [facility] [address] [place], [place] [id number] Dr. Natalie Espinoza RBC 4.50 106/ul Critically low 4.70-6.10 [facility] Comment on above: Performed By: #### C BC #### [facility] [address] [place] [address] Dr. Natalie Espinoza WBC 10.3 103/ul Normal 4.0-11.0 [facility] Comment on above: Performed By: #### C BC #### [facility] [address] [address] [address] Natalie Espinoza GLYCOHEMOGLOBIN A1Con 2021 ADA RECOMMENDATION SEE BELOW Normal [facility] Comment on above: Result Comment: ADA RECOMMENDED LIMIT 4.0 - 6.0 ADA THERAPEUTIC TARGET < 7.0 ACTION SUGGESTED > 7.0 Performed By: #### A 1C #### [facility] [address] [address] [address] Natalie Espinoza Glucose [Mass/Vol] 163 mg/dL Normal [facility] Comment on above: Performed By: #### A 1C #### [facility] [address] [place] [address] Dr. Natalie Espinoza HbA1c (Bld) [Mass fraction] 7.3 % Critically high 4.5-6.2 [facility] Comment on above: Performed By: #### A 1C #### [facility] [address] [place] [address] Dr. Natalie Espinoza LIPID PROFILEon 11-24-2021 CHOL-HDL RATIO NORM SEE BELOW Normal [facility] Comment on above: Result Comment: 3.3 - 4.4 LOW RISK 4.4 - 7.1 AVERAGE RISK 7.1 - 11.0 MODERATE RISK >11.0 HIGH RISK Performed By: #### L IPID, LIVER, BMP, TSH #### [facility] [address] [place] [address] Dr. Natalie Espinoza Cholesterol [Mass/Vol] 134 mg/dL Normal <=200 [facility] Comment on above: Performed By: #### L IPID, LIVER, BMP, TSH #### [facility] [address] [place] [address] Dr. Natalie Espinoza Cholesterol in HDL [Mass/Vol] 33 mg/dL Critically low 40-60 [facility] Comment on above: Performed By: #### L IPID, LIVER, BMP, TSH #### [facility] [address] [place] [address] Dr. Natalie Espinoza Cholesterol in LDL [Mass/Vol] 56.6 mg/dL Normal [facility] Comment on above: Performed By: #### L IPID, LIVER, BMP, TSH #### [facility] [address] [address] [address] Natalie Espinoza Cholesterol.total/Cho lesterol in HDL [Mass ratio] 4.1 {ratio} Normal [facility] Comment on above: Performed By: #### L IPID, LIVER, BMP, TSH #### [facility] [address] [address] [address] Natalie Espinoza HDL NORMAL > or = 60 mg/dl - LOW CARDIOVASCULAR RISK <40 mg/dl - HIGH CARDIOVASCULAR RISK Normal [facility] Comment on above: Performed By: #### L IPID, LIVER, BMP, TSH #### [facility] [address] [address] [address] Natalie Espinoza LDL CALC NORMAL SEE BELOW Normal [facility] Comment on above: Result Comment: <100 mg/dl OPTIMAL 100 - 129 mg/dl NEAR OR ABOVE OPTIMAL 130 - 159 mg/dl BORDERLINE HIGH 160 - 189 mg/dl HIGH >190 mg/dl VERY HIGH Performed By: #### L IPID, LIVER, BMP, TSH #### [facility] [address] [address] [address] Natalie Espinoza Triglyceride [Mass/Vol] 222 mg/dL Critically high <=150 [facility] Comment on above: Performed By: #### L IPID, LIVER, BMP, TSH #### [facility] [address] [address] [address] Natalie Espinoza VLDL CALC 44.4 mg/dL Normal [facility] Comment on above: Performed By: #### L IPID, LIVER, BMP, TSH #### [facility] [address] [address] [address] Natalie Espinoza LIVER PROFILEon 11-24-2021 Albumin [Mass/Vol] 4.0 g/dL Normal 3.4-5.0 [facility] Comment on above: Performed By: #### L IPID, LIVER, BMP, TSH #### [facility] [address] [address] [address] Natalie Espinoza Albumin/Globulin [Mass ratio] 1.1 {ratio} Normal [facility] Comment on above: Performed By: #### L IPID, LIVER, BMP, TSH #### [facility] [address] [address] [address] Natalie Espinoza ALP [Catalytic activity/Vol] 61 U/L Normal 46-116 [facility] Comment on above: Performed By: #### L IPID, LIVER, BMP, TSH #### [facility] [address] [address] [address] Natalie Espinoza ALT [Catalytic activity/Vol] 37 U/L Normal 16-63 [facility] Comment on above: Performed By: #### L IPID, LIVER, BMP, TSH #### [facility] [address] [place] [address] Dr. Natalie Espinoza AST [Catalytic activity/Vol] 12 U/L Critically low 15-37 [facility] Comment on above: Performed By: #### L IPID, LIVER, BMP, TSH #### [facility] [address] [place] [address] Dr. Natalie Espinoza BILI, CONJUGATED 0.1 mg/dL Normal 0.0-0.2 [facility] Comment on above: Performed By: #### L IPID, LIVER, BMP, TSH #### [facility] [address] [place] [address] Dr. Natalie Espinoza Bilirubin [Mass/Vol] 0.2 mg/dL Normal 0.2-1.0 [facility] Comment on above: Performed By: #### L IPID, LIVER, BMP, TSH #### [facility] [address] [place] [address] Dr. Natalie Espinoza Globulin (S) [Mass/Vol] 3.8 g/dL Normal [facility] Comment on above: Performed By: #### L IPID, LIVER, BMP, TSH #### [facility] [address] [address] [address] Natalie Espinoza Protein [Mass/Vol] 7.8 g/dL Normal 6.4-8.2 [facility] Comment on above: Performed By: #### L IPID, LIVER, BMP, TSH #### [facility] [address] [address] [address] Natalie Espinoza PROF CHEM 8 (BAS METB)on Anion gap [Moles/Vol] 12.4 mmol/L Normal [facility] Comment on above: Performed By: #### L IPID, LIVER, BMP, TSH #### [facility] [address] [address] [address] Natalie Espinoza Calcium [Mass/Vol] 9.1 mg/dL Normal 8.5-10.1 [facility] Comment on above: Performed By: #### L IPID, LIVER, BMP, TSH #### [facility] [address] [address] [address] Natalie Espinoza Chloride [Moles/Vol] 105 mmol/L Normal 98-107 [facility] Comment on above: Performed By: #### L IPID, LIVER, BMP, TSH #### [facility] [address] [address] [address] Natalie Espinoza CO2 [Moles/Vol] 27.8 mmol/L Normal 21.0-32.0 [facility] Comment on above: Performed By: #### L IPID, LIVER, BMP, TSH #### [facility] [address] [address] [address] Natalie Espinoza Creatinine [Mass/Vol] 1.09 mg/dL Normal 0.70-1.30 [facility] Comment on above: Performed By: #### L IPID, LIVER, BMP, TSH #### [facility] [address] [address] [address] Natalie Espinoza EGFR-AF GUAMANIAN >60 Normal >=60 [facility] Comment on above: Performed By: #### L IPID, LIVER, BMP, TSH #### [facility] [address] [address] [address] Natalie Espinoza EGFR-NON AF GUAMANIAN >60 Normal >=60 [facility] Comment on above: Performed By: #### L IPID, LIVER, BMP, TSH #### [facility] [address] [address] [address] Natalie Espinoza Glucose [Mass/Vol] 199 mg/dL Critically high 74-106 [facility] Comment on above: Performed By: #### L IPID, LIVER, BMP, TSH #### [facility] [address] [address] [address] Natalie Espinoza Potassium [Moles/Vol] 4.2 mmol/L Normal 3.5-5.1 [facility] Comment on above: Performed By: #### L IPID, LIVER, BMP, TSH #### [facility] [address] [place] [address] Dr. Natalie Espinoza Sodium [Moles/Vol] 141 mmol/L Normal 136-145 [facility] Comment on above: Performed By: #### L IPID, LIVER, BMP, TSH #### [facility] [address] [place] [address] Dr. Natalie Espinoza Urea nitrogen [Mass/Vol] 12.0 mg/dL Normal 7.0-18.0 [facility] Comment on above: Performed By: #### L IPID, LIVER, BMP, TSH #### [facility] [address] [place] [address] Dr. Natalie Espinoza Urea nitrogen/Creatinine [Mass ratio] 11.0 mg/mg Normal [facility] Comment on above: Performed By: #### L IPID, LIVER, BMP, TSH #### [facility] [address] [place] [address] Dr. Natalie Espinoza TSHon 11-24-2021 TSH 1.580 uIU/mL Normal 0.358-3.740 [facility] Comment on above: Performed By: #### L IPID, LIVER, BMP, TSH #### [facility] [address] [place] [address] Dr. Natalie Espinoza Vital Signs Date Time Vital Sign Value Performing Clinician Facility 01-31-2024 15:39-0500 Body height 180.3 cm Walter Moser MD Work Phone: [facility] 01-31-2024 15:39-0500 Body mass index (BMI) [Ratio] 35.84 kg/m2 Walter Moser MD Work Phone: [facility] [employer] 01-31-2024 15:39-0500 Body temperature 96.4 [degF] Walter Moser MD Work Phone: [facility] 01-31-2024 15:39-0500 Body weight 116.57 kg Walter Moser MD Work Phone: [facility] 01-31-2024 15:39-0500 Diastolic blood pressure 72 mm[Hg] Walter Moser MD Work Phone: [facility] 01-31-2024 15:39-0500 Heart rate 84 /min Walter Moser MD Work Phone: [facility] 01-31-2024 15:39-0500 Respiratory rate 18 /min Walter Moser MD Work Phone: [facility] 01-31-2024 15:39-0500 SaO2% (BldA) [Mass fraction] 96 % Walter Moser MD Work Phone: [facility] 01-31-2024 15:39-0500 Systolic blood pressure 120 mm[Hg] Walter Moser MD Work Phone: [facility] [employer] 03-28-2023 10:45-0500 Body height 180.34 cm Shirin Flanagan Other [employer] Other 03-28-2023 10:45-0500 Body mass index (BMI) [Ratio] 36.31 kg/m2 Shirin Flanagan Other [employer] Other 03-28-2023 10:45-0500 Body temperature 97.8 [degF] Shirin Flanagan Other [employer] Other 03-28-2023 10:45-0500 Body weight 118.12 kg Shirin Flanagan Other [employer] Other 03-28-2023 10:45-0500 Respiratory rate 18 /min Shirin Flanagan Other [employer] Other 03-28-2023 10:45-0500 SaO2% (BldA) [Mass fraction] 99 % Shirin Flanagan Other [employer] Other Encounters Encounter Date Encounter Type Care Provider Facility Start: 01-31-2024 End: 01-31-2024 Periodic preventive med est patient 40-64yrs Walter Moser MD Work Phone: [facility] Comment on above: Annual physical exam (Primary Dx); Vasomotor rhinitis; Acute non-recurrent pansinusitis; Class 2 severe obesity due to excess calories with serious comorbidity and body mass index (BMI) of 35.0 to 35.9 in adult ([facility]); Type 2 diabetes mellitus with hyperglycemia, without long-term current use of insulin ([facility]); Dyslipidemia ([facility]) Start: 01-31-2024 End: 01-31-2024 ambulatory WALTER MOSER Not Available Start: 01-31-2024 End: 01-31-2024 Bamhananeo flowsananth Moser MD Work Phone: [facility] Start: 01-31-2024 End: 01-31-2024 Bamboo flowsheet Walter Moser MD Work Phone: [facility] Start: 01-31-2024 End: 01-31-2024 Patient encounter procedure Walter Moser MD Work Phone: [facility] Start: 08-11-2023 End: 08-11-2023 ambulatory WALTER MOSER Not Available Start: 04-07-2023 End: 04-07-2023 ambulatory WILLIAM LALA Not Available Start: 03-30-2023 End: 03-30-2023 ambulatory JENNIFER SEAMAN Not Available Start: 03-28-2023 End: 03-28-2023 ambulatory Shirin Flanagan Other [employer] Other Start: 03-28-2023 Office outpatient ne w 20 minutes Shirin Flanagan [facility] Start: 03-03-2023 End: 03-03-2023 ambulatory WILLIAM LALA Not Available Start: 06-19-2022 End: 06-20-2022 ambulatory WALTER MOSER Facility:[facility]1 Start: 11-29-2021 Encounter for genera l adult medical examination without abnormal findings WALTER MOSER [facility] Start: 11-24-2021 End: 11-25-2021 ambulatory WALTER RODRÍGUEZPAL Facility:[facility] Start: 11-24-2021 End: 11-25-2021 Encounter for general adult medical examination without abnormal findings WALTER Ceballos EHSAN Facility:[facility]1 Procedures Date Procedure Procedure Detail Performing Clinician Start: 11-24-2021 PSA screening WALTER KAUR Comment on above: Performed By: #### P SASC #### [facility] [address] [place] [address] Dr. Natalie Espinoza Start: 06-06-2019 Colonoscopy Walter castellanos MD Work Phone: Plan of Treatment Date Care Activity Detail Author Start: 06-05-2029 Screening for malign ant neoplasm of colon [facility] Start: 08-23-2024 Glaucoma screening Diabetes: R etinopathy Screening [facility] Start: 08-17-2024 Urine screening for protein Diabetes: Urine Protein Screening [facility] Start: 07-31-2024 End: 07-31-2024 Patient encounter procedure 07/31/2024 3:30 PM EDT Office Visit [facility] [address] [place] [id number] Walter Moser MD [address] [place] [address] [facility] Start: 02-18-2024 Hemoglobin A1c measurement Diabetes: Hemoglobin A1C [facility] Start: 01-31-2024 End: 01-30-2025 Basic metabolic 1998 panel - Serum or Plasma Basic metabolic panel Lab Routine Annual physical exam Expected: 01/31/2024 (Approximate), Expires: 01/30/2025 [facility] Comment on above: Expected: 01/31/2024 (Approximate), Expires: 01/30/2025 Start: 01-31-2024 End: 01-30-2025 CBC W Auto Differential panel - Blood CBC and differential Lab Routine Annual physical exam Expected: 01/31/2024 (Approximate), Expires: 01/30/2025 [facility] Comment on above: Expected: 01/31/2024 (Approximate), Expires: 01/30/2025 Start: 01-31-2024 End: 01-30-2025 Hemoglobin A1c/Hemoglobin.total in Blood Hemoglobin A1c Lab Routine Annual physical exam Expected: 01/31/2024 (Approximate), Expires: 01/30/2025 [facility] Work Phone: Comment on above: Expected: 01/31/2024 (Approximate), Expires: 01/30/2025 Start: 01-31-2024 End: 01-30-2025 Hepatic function 2000 panel - Serum or Plasma Hepatic function panel Lab Routine Annual physical exam Expected: 01/31/2024 (Approximate), Expires: 01/30/2025 [facility] Comment on above: Expected: 01/31/2024 (Approximate), Expires: 01/30/2025 Start: 01-31-2024 End: 01-30-2025 Lipid 1996 panel - Serum or Plasma Lipid panel Lab Routine Annual physical exam Expected: 01/31/2024 (Approximate), Expires: 01/30/2025 [facility] Comment on above: Expected: 01/31/2024 (Approximate), Expires: 01/30/2025 Start: 01-31-2024 End: 01-30-2025 Prostate specific Ag [Mass/volume] in Serum or Plasma PSA Lab Routine Annual physical exam Expected: 01/31/2024 (Approximate), Expires: 01/30/2025 [facility] Comment on above: Expected: 01/31/2024 (Approximate), Expires: 01/30/2025 Start: 01-31-2024 End: 01-30-2025 Thyrotropin [Units/volume] in Serum or Plasma TSH Lab Routine Annual physical exam Expected: 01/31/2024 (Approximate), Expires: 01/30/2025 [facility] Comment on above: Expected: 01/31/2024 (Approximate), Expires: 01/30/2025 Start: 11-20-2023 Influenza vaccination Influenza Vacc ine (#1) [facility] Start: 1965 Screening for malign ant neoplasm of colon [facility] Immunizations Immunization Date Immunization Notes Care Provider Fa cility 01-15-2022 Pneumococcal Conjuga te PCV 20 Walter Moser MD Work Phone: [facility] 01-15-2022 influenza virus vacc ine, unspecified formulation Walter Moser MD Work Phone: [facility] Payers Date Payer Category Payer Private Health Insurance [employer] [id number] 2022 Unknown [id number] 1965 Unknown [id number] 1965 Unknown [id number] 1965 Unknown [id number] 1965 Unknown [id number] 1965 Unknown [id number] 1965 Unknown [id number] 1965 Unknown [id number] 1959 Unknown [id number] 1959 Unknown [id number] Social History Date Type Detail Facility Unknown if ever smoked [employer] Other Start: 07-28-2023 End: 01-31-2024 Sex Assigned At [facility] Start: 02-17-2023 Tobacco smoking status IAIS Ex-smoker [facility] End: 03-21-2011 History of tobacco use Current smoker [facility] End: 03-21-2011 History of tobacco use Cigarette Smoker [facility] Start: 02-17-2023 Tobacco use and exposure Smokeless tobacco non-user [facility] Start: 01-31-2024 Alcoholic beverage intake Ex-drinker (finding) [facility] Start: 07-28-2023 End: 01-31-2024 History of Social function [facility] Do you belong to any clubs or organizations such as druze groups, unions, fraternal or athletic groups, or school groups? No [facility] Attends Club or Organization Meetings Not on file [facility] Are you now , , , , never or living with a partner? [facility] How often to you hav e a drink containing alcohol? 2-4 times a month [facility] How many standard dr inks containing alcohol do you have on a typical day? 1 or 2 [facility] How often do you hav e 6 or more drinks on 1 occasion? Less than monthly [facility] How hard is it for y ou to pay for the very basics like food, housing, medical care, and heating Not very hard [facility] Do you feel stress - tense, restless, nervous, or anxious, or unable to sleep at night because your mind is troubled all the time - these days [OSQ] Not at all [facility] The food that (I/we) bought just didn't last, and (I/we) didn't have money to get more. Never true [facility] Start: 1965 Sex assigned at Not on file [facility] History of Present illness Narrative 01-31-2024 Walter Moser MD - 01/31/2024 4:55 PM Dusty Moser MD - 01/31/2024 4:55 PM Dusty Moser MD - 01/31/2024 4:54 PM Dusty Moser MD - 01/31/2024 4:52 PM EST Note Date & Type Note Facility 01-31-2024 History of Presen t illness Narrative Associated Problem(s): Dyslipidemia ([facility]) Due for labs. Associated Problem(s): Type 2 diabetes mellitus with hyperglycemia, without long-term current use of insulin ([facility]) Due for A1C Associated Problem(s): Class 2 severe obesity due to excess calories with serious comorbidity and body mass index (BMI) of 35.0 to 35.9 in adult ([facility]) Weight down 12 pounds in past year. Discussed proper diet and regular aerobic exercise. Recommend Weight Watchers and need to limit calories and smaller portions. Need to increase activity and regular aerobic exercise several days a week for 30 minutes at a time. Associated Problem(s): Annual physical exam Due for labs. Discussed proper diet and regular aerobic exercise. Need aerobic exercise 5-6 days a week for 30 minutes at a time. Smaller portions and limit total calories. Colonoscopy every 10 years. Tetanus every 10 years. Advised not to smoke. Discussed daily Aspirin therapy. Associated Problem(s): Acute non-recurrent pansinusitis Take antibiotics BID for 10 days. Use prednisone for inflammation. Use sudafed or other decongestants as needed. Use Robitussin or Robitussin-DM for cough. Can use afrin for congestion but no longer than 3 days. Can use Mucinex to bring up phlegm. Use Motrin or Tylenol as needed for fever, aches, or pains. Increase fluid intake and rest. Should improve over next 5-7 days and if no better or worse call for re-evaluation. Images from the original note were not included. Subjective Patient ID: Broderick Palma is a 58 y.o. male who presents for Follow-up (6 m) and Sinusitis (Ongoing for about 4 weeks). Presents for annual PE. Weight down 12 pounds in last year. Active at work but no regular exercise or activity. Tries to watch diet and eat healthy. Increased fruits and vegetables. Smaller portions and limits snacking. Tries to limit total daily calories. Due for labs. C/o cough, congestion, and rhinorrhea x 4 weeks. Afebrile. Severe fatigue and no energy. Mild cough dry and nonproductive. Denies chest tightness or SOB. KAUFMAN and sinus pressure in forehead and cheeks along with postnasal drip. Ears plugged and popping. Sore throat and pain to swallow. Mild nausea. Denies recent sick contacts. Using OTC medication and mild relief. No improvement in symptoms since onset. Review of Systems Constitutional: Negative for fatigue. Respiratory: Negative for cough, shortness of breath and wheezing. Cardiovascular: Negative for chest pain and palpitations. Gastrointestinal: Negative for abdominal pain, diarrhea, nausea and vomiting. Genitourinary: Negative for dysuria. Objective Physical Exam Constitutional: General: He is not in acute distress. Appearance: Normal appearance. HENT: Head: Normocephalic. Right Ear: Tympanic membrane and ear canal normal. Left Ear: Tympanic membrane and ear canal normal. Eyes: Extraocular Movements: Extraocular movements intact. Pupils: Pupils are equal, round, and reactive to light. Cardiovascular: Rate and Rhythm: Normal rate and regular rhythm. Heart sounds: No murmur heard. No friction rub. No gallop. Pulmonary: Breath sounds: Normal breath sounds. No wheezing, rhonchi or rales. Abdominal: General: Bowel sounds are normal. There is no distension. Palpations: Abdomen is soft. Tenderness: There is no abdominal tenderness. There is no guarding or rebound. Musculoskeletal: General: Normal range of motion. Left lower leg: No edema. Neurological: General: No focal deficit present. Mental Status: He is alert. Cranial Nerves: No cranial nerve deficit. Deep Tendon Reflexes: Reflexes normal. Assessment/Plan Problem List Items Addressed This Visit Vasomotor rhinitis Relevant Medications ipratropium (Atrovent) 0.06 % nasal spray Annual physical exam - Primary Due for labs. Discussed proper diet and regular aerobic exercise. Need aerobic exercise 5-6 days a week for 30 minutes at a time. Smaller portions and limit total calories. Colonoscopy every 10 years. Tetanus every 10 years. Advised not to smoke. Discussed daily Aspirin therapy. Relevant Orders Hemoglobin A1c Basic metabolic panel CBC and differential Hepatic function panel Lipid panel PSA TSH Acute non-recurrent pansinusitis Take antibiotics BID for 10 days. Use prednisone for inflammation. Use sudafed or other decongestants as needed. Use Robitussin or Robitussin-DM for cough. Can use afrin for congestion but no longer than 3 days. Can use Mucinex to bring up phlegm. Use Motrin or Tylenol as needed for fever, aches, or pains. Increase fluid intake and rest. Should improve over next 5-7 days and if no better or worse call for re-evaluation. Relevant Medications amoxicillin-clavulanate (Augmentin) 875-125 MG tablet predniSONE (Deltasone) 50 MG tablet documented in this encounter [facility] Evaluation note 03-28-2023 Note Date & Type [...] Jock [facility] home care material was printed [employer] Other Evaluation note Note Date & Type Note Facility Evaluation note Diagnosis Type 2 diabetes mellitus with hyperglycemia, without long-term current use of insulin ([facility])- Primary Benign hypertension ([facility]) Essential hypertension, benign Gastroesophageal reflux disease without esophagitis Esophageal reflux Vasomotor rhinitis Allergic rhinitis, cause unspecified Annual physical exam- Primary Routine general medical examination at a health care facility Vasomotor rhinitis Allergic rhinitis, cause unspecified Acute non-recurrent pansinusitis Class 2 severe obesity due to excess calories with serious comorbidity and body mass index (BMI) of 35.0 to 35.9 in adult ([facility]) Type 2 diabetes mellitus with hyperglycemia, without long-term current use of insulin ([facility]) Dyslipidemia ([facility] Other and unspecified hyperlipidemia documented in this encounter [facility] History general Narrative - Reported Note Date & Type Note Facility History general Narrative - Reported Type Medical History high blood pressure Medical History high cholesterol Surgical History hand surgery right thumb Hospitalization History See Above [employer] Other Summary Purpose Family History No Family History Records FoundNo Family History Records Found Advance Directives No Advanced Directives Records FoundNo Advanced Directives Records Found Additional Source Comments (unrecognized sect ion and content) No Status Records FoundNo Status Records Found INFORMATION SOURCE (unrecogn ized section and content) DATE CREATED AUTHOR 06/26/2022 [facility] DATE CREATED AUTHOR AUTHOR'S ORGANIZ ATION 02/02/2024 [facility] EPIC REASON FOR VISIT (unrecogniz ed section and content) Reason Comments Follow-up 6 m Sinusitis Ongoing for about 4 weeks Care Teams (unrecognized sec tion and content) Hospice Educator Relationship Specialty Start Date End Date Walter Moser MD [address] [place] [address] PCP - General Family Medicine 08/11/23 Hospice Educator Relationship Specialty Start Date End Date Walter Moser MD [address] [place] [address] PCP - General Family Medicine 08/11/23 FOR RECORDS PERTAINING TO PATIENTS WHO ARE [...] BE BASED ON THE PRIMARY CLINICAL RECORDS. [facility] [employer] [facility]. provides no warranty or guarantee of the accuracy or completeness of information in this document.
[2024-02-17 08:00] LABS: Basophils Absolute Auto 0.1 10^3/uL (0.0-0.1); Basophils Percent Auto 0.6 % (0.2-2.0); Eosinophils Absolute Auto 0.4 10^3/uL (0.0-0.7); Eosinophils Percent Auto 4.4 % (0.9-7.0); Hematocrit 44.4 % (42.0-54.0); Hemoglobin 14.6 g/dL (14.0-18.0); Immature Granulocytes Abs Auto 0.02 10^3/uL (0.00-0.03); Immature Granulocytes Pct Auto 0.2 % (0.0-0.5); Lymphocytes Absolute Auto 2.8 10^3/uL (1.2-3.8); Lymphocytes Percent Auto 29.8 % (20.5-60.0); Mean Corpuscular HGB Conc 32.9 g/dL (29.9-35.2); Mean Corpuscular Hemoglobin 30.9 pg (25.9-34.0); Mean Corpuscular Volume 94.1 fL (80.0-94.0); Mean Platelet Volume 9.9 fL (9.5-13.5); Monocytes Percent Auto 10.9 % (1.7-12.0); Neutrophils Absolute Auto 5.1 10^3/uL (1.4-6.5); Neutrophils Percent Auto 54.1 % (43.0-75.0); Platelet Count 427 10^3/uL (150-450); Red Blood Count 4.72 10^6/uL (4.70-6.10); Red Cell Distribution Width 12.3 % (11.0-15.0); White Blood Count 9.5 10^3/uL (4.0-11.0)
[2024-02-17 08:26] LABS: Estimated Average Glucose 171 mg/dL; Glycohemoglobin A1C 7.6 % (4.5-6.2)
[2024-02-17 09:24] LABS: Alanine Aminotransferase 39 U/L (16-63); Albumin Globulin Ratio 0.9; Albumin Level 3.4 g/dL (3.4-5.0); Alkaline Phosphatase 42 U/L (46-116); Anion Gap 12.9; Aspartate Amino Transferase 17 U/L (15-37); BUN Creatinine Ratio 20.8; Bilirubin Direct 0.1 mg/dL (0.0-0.2); Bilirubin Total 0.4 mg/dL (0.2-1.0); Calcium 8.8 mg/dL (8.5-10.1); Carbon Dioxide 27.3 mmol/L (21.0-32.0); Chloride 108 mmol/L (98-107); Chol HDL Ratio 3.8; Cholesterol 165 mg/dL (<=200); Estimated GFR (African America >60 (>=60 mL/min/1.73m^2); Estimated GFR (Non-African Ame >60 (>=60 mL/min/1.73m^2); Globulin 3.8 g/dL; Glucose 146 mg/dL (74-106); HDL Cholesterol 44 mg/dL (40-60); LDL Cholesterol Calculated 98.2 mg/dL; Potassium 4.2 mmol/L (3.5-5.1); Sodium 144 mmol/L (136-145); Thyroid Stimulating Hormone 1.366 uIU/mL (0.358-3.740); Total Protein 7.2 g/dL (6.4-8.2); Triglycerides 114 mg/dL (<=150); VLDL CHOLESTEROL 22.8 mg/dL
[2024-02-17 11:49] LABS: Prostate Specific Antigen Scrn 0.82 ng/mL (<=4.00)
== END 2024-02-17 07:35 | disposition home or self-care (01) ==
LOC: LAB 07:37
PROVIDERS: PCP Family Medicine; Visit Provider Family Medicine
DX: Z00.00 Encounter for general adult medical examination without abnormal findings (principal)
CPT/HCPCS: 36415; 80048; 80061; 80076; 83036; 84443; 85025; G0103

== ENCOUNTER 2024-08-24 07:44 | Outpatient (OUT) | payer OTHER, SELFPAY ==
--- OUTSIDE RECORDS SUMMARY | 2024-08-24 07:48 | XMS_ITS | CCD ---
Author Organization [facility] Care Team Providers Care Chair Springer Name Role Phone KAROLINE MOSER Consulting Unavailable KAROLINE MOSER Attending Unavailable KAROLINE MOSER Admitting Unavailable KAROLINE MOSER Primary Care Unavailable KAROLINE MOSER Primary Care Unavailable KAROLINE MOSER Consulting Unavailable KAROLINE MOSER Attending Unavailable KAROLINE MOSER Admitting Unavailable Shirin Flanagan Unavailable Karoline Moser MD Primary Care Provider [phone] KAROLINE MOSER Attending Unavailable KAROLINE MOSER Attending Unavailable KAROLINE MOSER Attending Unavailable Medications [...] 02/10/2024 Active atorvastatin 40 mg oral tablet (10 sources) HMG-CoA Reductase Inhibitor Start: 03-12-2024 End: 05-17-2024 take 1 tablet by mouth at bedtime atorvastatin (Lipitor) 40 MG tablet Indications: Dyslipidemia (CMS/HCC) TAKE 1 TABLET BY MOUTH AT BEDTIME 90 tablet 3 05/17/2024 Active Start: 11-14-2023 take 1 tablet by germán th at bedtime atorvastatin (Lipitor) 40 MG tablet Indications: Dyslipidemia (CMS/HCC) TAKE 1 TABLET BY MOUTH AT BEDTIME 30 tablet 5 11/14/2023 Active take 1 tablet by germán th every twenty-four hours Atorvastatin Calcium 40 MG 1 tablet Orally Once a day Active cetirizine hydrochloride 10 mg oral tablet (9 sources) Histamine-1 Receptor Antagonist take 1 tablet [...] bromide 0.042 mg/actuat metered dose nasal spray (10 sources) Anticholinergic Start: 01-31-20 take 2 spray(s) [...] 15 mL 5 01/11/2024 01/31/2024 Discontinued (Reorder) lisinopril 20 mg oral tablet (9 sources) Angiotensin Converting Enzyme Inhibitor Start: 03-12-2024 take 1 tablet by mouth once daily lisinopril 20 MG tablet Indications: Benign hypertension (CMS/HCC) TAKE 1 TABLET BY MOUTH DAILY 30 tablet 5 03/12/2024 Active Start: 08-16-2023 End: 02-06-2024 take 1 tablet by mouth once daily lisinopril 20 MG tablet Indications: Benign hypertension (CMS/HCC) TAKE 1 TABLET BY MOUTH DAILY 30 tablet 5 02/06/2024 Active take 1 tablet by germán th every twenty-four hours Lisinopril 20 MG 1 tablet Orally Once a day Active montelukast 10 mg oral tablet (9 sources) Leukotriene Receptor Antagonist Start: 07-18-2024 take 1 tablet by mouth at bedtime montelukast (Singulair) 10 MG tablet Indications: Seasonal allergic rhinitis due to pollen TAKE 1 TABLET(10 MG) BY MOUTH AT BEDTIME 30 tablet 1 07/18/2024 Active Start: 03-19-2024 take 1 tablet by germán th at bedtime montelukast (Singulair) 10 MG tablet Indications: Seasonal allergic rhinitis due to pollen TAKE 1 TABLET(10 MG) BY MOUTH AT BEDTIME 30 tablet 1 03/19/2024 Active Start: 01-17-2024 take 1 tablet by germán th at bedtime montelukast (Singulair) 10 MG tablet Indications: Seasonal allergic rhinitis due to pollen Take 1 tablet (10 mg) by mouth at bedtime 30 tablet 1 01/17/2024 Active take 1 tablet by germán th every twenty-four hours Montelukast Sodium 10 MG 1 tablet Orally Once a day Active Multivitamin preparation (1 source) Multivitamin Act adela omeprazole 20 mg delayed release oral tablet (9 sources) Proton Pump Inhibitor take 1 tablet [...] Dates Sig (Normalized) Sig (Original) Gentamicin Sulfate (SHELTER) (1 source) Start: 09-04-2013 take 1 drop(s) into the eye(s) three times daily as needed Garamycin 0.3 % 1 drop into affected eye Ophthalmic Three times a day for 7 days Aug, Not-Taking/PRN predniSONE 50 mg oral tablet (2 sources) Start: 01-31-2024 End: 02-06-2024 take 1 tablet by mouth once daily predniSONE (Deltasone) 50 MG tablet Indications: Acute non-recurrent pansinusitis Take 1 tablet (50 mg) by mouth Daily for 6 days 6 tablet 01/31/2024 02/06/2024 Problems Active Problems Problem Classification Problem Date Documented Date Episodic/Chronic Diabetes mellitus with complications (16 sources) Type 2 diabetes mellitus with hyperglycemia; Translations: [Hyperglycemia due to type 2 diabetes mellitus] Onset: 06-19-2022 Chronic Disorders of lipid metabolism (11 sources) Dyslipidemia; Translations: [Hyperlipidemia, unspecified] Onset: 01-31-2024 01-31-2024 Chronic Esophageal disorders (10 sources) Gastroesophageal reflux disease; Translations: [Gastro-esophageal reflux disease without esophagitis] Onset: 02-17-2023 02-17-2023 Chronic Essential hypertension (10 sources) Benign hypertension; Translations: [Essential (primary) hypertension] Onset: 02-17-2023 02-17-2023 Chronic Mycoses (1 source) Tinea cruris Episodic Other lower respiratory disease (1 source) Personal history of other diseases of the respiratory system Episodic Other nutritional; endocrine; and metabolic disorders (10 sources) Severe obesity; Translations: [Class 2 severe obesity due to excess calories with serious comorbidity and body mass index (BMI) of 35.0 to 35.9 in adult] Onset: 01-31-2024 01-31-2024 Chronic Other upper respiratory disease (10 sources) Allergic rhinitis due to pollen; Translations: [Allergic rhinitis due to pollen] Onset: 02-17-2023 02-17-2023 Chronic Other upper respiratory disease (10 sources) Vasomotor rhinitis; Translations: [Vasomotor rhinitis] Onset: 03-30-2023 03-30-2023 Chronic Spondylosis; intervertebral disc disorders; other back problems (8 sources) Degeneration of lumbar intervertebral disc; Translations: [DDD (degenerative disc disease), lumbar] Onset: 02-17-2023 02-17-2023 Chronic Past or Other Problems Problem Classification Problem Date Documented Da te Episodic/Chronic Acquired foot deformities (8 sources) Acquired pes planus; Translations: [Flat foot [pes planus] (acquired), unspecified foot] Onset: 02-17-2023 02-17-2023 Episodic Other screening for suspected conditions (not mental disorders or infectious disease) (1 source) Encounter for screening for malignant neoplasm of prostate; Translations: [ENC SCREEN MALIG NEOPLASM PROSTATE] Onset: 11-29-2021 Episodic Other upper respiratory infections (10 sources) Acute pansinusitis; Translations: [Acute pansinusitis, unspecified] Onset: 01-31-2024 Resolved: 07-31-2024 01-31-2024 Episodic Results Test Name Value Interpretation Reference Range Facility ALL CBC WITH AUTO DIFFon BASOPHILS ABSOLUTE AUTO 0.1 [facility] Basophils/100 WBC (Bld) 0.6 % 0.2 - 2.0 % [facility] Eosinophils/100 WBC (Bld) 4.4 % 0.9 - 7.0 % [facility] Erythrocyte distribution width (RBC) [Ratio] 12.3 % 11.0 - 15.0 % [facility] Hematocrit (Bld) [Volume fraction] 44.4 % 42.0 - 54.0 % [facility] ([facility]ld[facility] [Mass/Vol] 14.6 g/dL 14.0 - 18.0 g/dL [facility] IMMATURE GRANULOCYTES ABS AUTO 0.02 [facility] Immature granulocytes/100 WBC (Bld) 0.2 % 0.0 - 0.5 % [facility] Interpretation and review of laboratory results Abnormal [facility] LYMPHOCYTES ABSOLUTE AUTO 2.8 [facility] Lymphocytes/100 WBC (Bld) 29.8 % 20.5 - 60.0 % [facility] MCH (RBC) [Entitic mass] 30.9 pg 25.9 - 34.0 pg [facility] MCHC (RBC) [Mass/Vol] 32.9 g/dL 29.9 - 35.2 g/dL [facility] MCV (RBC) [Entitic vol] 94.1 fL High 80.0 - 94.0 fL [facility] MONOCYTES ABSOLUTE AUTO 1 High [facility] Monocytes/100 WBC (Bld) 10.9 % 1.7 - 12.0 % [facility] NEUTROPHILS ABSOLUTE AUTO 5.1 [facility] Neutrophils/100 WBC (Bld) 54.1 % 43.0 - 75.0 % [facility] Platelet mean volume (Bld) [Entitic vol] 9.9 fL 9.5 - 13.5 fL [facility] EO # 0.4 [facility] PLT 427 [facility] RBC 4.72 [facility] WBC 9.5 [facility] GLYCOHEMOGLOBIN A1Con 2022 ADA RECOMMENDATION SEE BELOW Normal [facility] Comment on above: Result Comment: ADA RECOMMENDED LIMIT 4.0 - 6.0 ADA THERAPEUTIC TARGET < 7.0 ACTION SUGGESTED > 7.0 Performed By: #### A 1C #### [facility] [address] [place] [address] Dr. Natalie Espinoza Glucose [Mass/Vol] 174 mg/dL Normal [facility] Comment on above: Performed By: #### A 1C #### [facility] [address] [place] [address] Dr. Natalie Espinoza HbA1c (Bld) [Mass fraction] 7.7 % Critically high 4.5-6.2 [facility] Comment on above: Performed By: #### A 1C #### [facility] [address] [place] [address] Dr. Natalie Espinoza CBC AUTO DIFFon 11-24-2021 BASO # 0.1 103/ul Normal 0.0-0.1 [facility] Comment on above: Performed By: #### C BC #### [facility] [address] [place] [address] Dr. Natalie Espinoza Basophils/100 WBC (Bld) 0.6 % Normal 0.2-2.0 [facility] Comment on above: Performed By: #### C BC #### [facility] [address] [place] [address] Dr. Natalie Espinoza EO # 0.2 103/ul Normal 0.0-0.7 [facility] Comment on above: Performed By: #### C BC #### [facility] [address] [place] [address] Dr. Natalie Espinoza Eosinophils/100 WBC (Bld) 2.3 % Normal 0.9-7.0 [facility] Comment on above: Performed By: #### C BC #### [facility] [address] [place] [address] Dr. Natalie Espinoza Erythrocyte distribution width (RBC) [Ratio] 12.2 % Normal 11.0-15.0 [facility] Comment on above: Performed By: #### C BC #### [facility] [address] [place] [address] Dr. Natalie Espinoza Hematocrit (Bld) [Volume fraction] 42.1 % Normal 42.0-54.0 [facility] Comment on above: Performed By: #### C BC #### [facility] [address] [place] [address] Dr. Natalie Espinoza Hemoglobin (Bld) [Mass/Vol] 13.9 g/dL Critically low 14.0-18.0 [facility] Comment on above: Performed By: #### C BC #### [facility] [address] [place] [address] Dr. Natalie Espinoza IG # 0.03 10e3/ul Normal 0.00-0.03 [facility] Comment on above: Performed By: #### C BC #### [facility] [address] [place] [address] Dr. Natalie Espinoza IG % 0.3 % Normal 0.0-0.5 [facility] Comment on above: Performed By: #### C BC #### [facility] [address] [place] [address] Dr. Natalie Espinoza LYMPH # 3.3 103/ul Normal 1.2-3.8 [facility] Comment on above: Performed By: #### C BC #### [facility] [address] [place] [address] Dr. Natalie Espinoza Lymphocytes/100 WBC (Bld) 32.2 % Normal 20.5-60.0 [facility] Comment on above: Performed By: #### C BC #### [facility] [address] [place] [address] Dr. Natalie Espinoza MANUAL DIFF REQ NO Normal [facility] Comment on above: Performed By: #### C BC #### [facility] [address] [place], [place] [id number] Dr. Natalie Espinoza MCH (RBC) [Entitic mass] 30.9 pg Normal 25.9-34.0 [facility] Comment on above: Performed By: #### C BC #### [facility] [address] [place] [address] Dr. Natalie Espinoza MCHC (RBC) [Mass/Vol] 33.0 g/dL Normal 29.9-35.2 [facility] Comment on above: Performed By: #### C BC #### [facility] [address] [place] [address] Dr. Natalie Espinoza MCV (RBC) [Entitic vol] 93.6 fL Normal 80.0-94.0 [facility] Comment on above: Performed By: #### C BC #### [facility] [address] [place] [address] Dr. Natalie Espinoza MONO # 1.1 103/ul Critically high 0.3-0.8 [facility] Comment on above: Performed By: #### C BC #### [facility] [address] [place] [address] Dr. Natalie Espinoza Monocytes/100 WBC (Bld) 10.9 % Normal 1.7-12.0 [facility] Comment on above: Performed By: #### C BC #### [facility] [address] [place] [address] Dr. Natalie Espinoza NEUT # 5.5 103/ul Normal 1.4-6.5 [facility] Comment on above: Performed By: #### C BC #### [facility] [address] [place] [address] Dr. Natalie Espinoza Neutrophils/100 WBC (Bld) 53.7 % Normal 43.0-75.0 [facility] Comment on above: Performed By: #### C BC #### [facility] [address] [place] [address] Dr. Natalie Espinoza Platelet mean volume (Bld) [Entitic vol] 11.2 fL Normal 9.5-13.5 [facility] Comment on above: Performed By: #### C BC #### [facility] [address] [address] [address] Natalie Espinoza PLT 423 103/ul Normal 150-450 [facility] Comment on above: Performed By: #### C BC #### [facility] [address] [address] [address] Natalie Espinoza RBC 4.50 106/ul Critically low 4.70-6.10 [facility] Comment on above: Performed By: #### C BC #### [facility] [address] [address] [address] Natalie Espinoza WBC 10.3 103/ul Normal 4.0-11.0 [facility] Comment on above: Performed By: #### C BC #### [facility] [address] [place] [address] Dr. Natalie Espinoza GLYCOHEMOGLOBIN A1Con 2021 ADA RECOMMENDATION SEE BELOW Normal [facility] Comment on above: Result Comment: ADA RECOMMENDED LIMIT 4.0 - 6.0 ADA THERAPEUTIC TARGET < 7.0 ACTION SUGGESTED > 7.0 Performed By: #### A 1C #### [facility] [address] [place] [address] Dr. Natalie Espionza Glucose [Mass/Vol] 163 mg/dL Normal [facility] Comment on above: Performed By: #### A 1C #### [facility] [address] [place] [address] Dr. Natalie Espinoza HbA1c (Bld) [Mass fraction] 7.3 % Critically high 4.5-6.2 [facility] Comment on above: Performed By: #### A 1C #### [facility] [address] [place] [address] Dr. Natalie Espinoza LIPID PROFILEon 11-24-2021 CHOL-HDL RATIO NORM SEE BELOW Normal [facility] Comment on above: Result Comment: 3.3 - 4.4 LOW RISK 4.4 - 7.1 AVERAGE RISK 7.1 - 11.0 MODERATE RISK >11.0 HIGH RISK Performed By: #### L IPID, LIVER, BMP, TSH #### [facility] [address] [place] [address] Dr. Natalie Espinoza Cholesterol [Mass/Vol] 134 mg/dL Normal <=200 [facility] Comment on above: Performed By: #### L IPID, LIVER, BMP, TSH #### [facility] [address] [address] [address] Natalie Espinoza Cholesterol in HDL [Mass/Vol] 33 mg/dL Critically low 40-60 [facility] Comment on above: Performed By: #### L IPID, LIVER, BMP, TSH #### [facility] [address] [address] [address] Natalie Espinoza Cholesterol in LDL [Mass/Vol] 56.6 mg/dL Normal [facility] Comment on above: Performed By: #### L IPID, LIVER, BMP, TSH #### [facility] [address] [address] [address] Natalie Espinoza Cholesterol.total/Cho lesterol in HDL [Mass ratio] 4.1 {ratio} Normal [facility] Comment on above: Performed By: #### L IPID, LIVER, BMP, TSH #### [facility] [address] [address] [address] Natalie Espinoza HDL NORMAL > or = 60 mg/dl - LOW CARDIOVASCULAR RISK <40 mg/dl - HIGH CARDIOVASCULAR RISK Normal [facility] Comment on above: Performed By: #### L IPID, LIVER, BMP, TSH #### [facility] [address] [address] [address] Natalie Espinoza LDL CALC NORMAL SEE BELOW Normal [facility] Comment on above: Result Comment: <100 mg/dl OPTIMAL 100 - 129 mg/dl NEAR OR ABOVE OPTIMAL 130 - 159 mg/dl BORDERLINE HIGH 160 - 189 mg/dl HIGH >190 mg/dl VERY HIGH Performed By: #### L IPID, LIVER, BMP, TSH #### [facility] [address] [address] [address] Natalie Espinoza Triglyceride [Mass/Vol] 222 mg/dL Critically high <=150 [facility] Comment on above: Performed By: #### L IPID, LIVER, BMP, TSH #### [facility] [address] [address] [address] Natalie Espinoza VLDL CALC 44.4 mg/dL Normal [facility] Comment on above: Performed By: #### L IPID, LIVER, BMP, TSH #### [facility] [address] [address] [address] Natalie Espinoza LIVER PROFILEon 11-24-2021 Albumin [Mass/Vol] 4.0 g/dL Normal 3.4-5.0 [facility] Comment on above: Performed By: #### L IPID, LIVER, BMP, TSH #### [facility] [address] [place] [address] Dr. Natalie Espinoza Albumin/Globulin [Mass ratio] 1.1 {ratio} Normal [facility] Comment on above: Performed By: #### L IPID, LIVER, BMP, TSH #### [facility] [address] [place] [address] Dr. Natalie Espinoza ALP [Catalytic activity/Vol] 61 U/L Normal 46-116 [facility] Comment on above: Performed By: #### L IPID, LIVER, BMP, TSH #### [facility] [address] [address] [address] Natalie Espinoza ALT [Catalytic activity/Vol] 37 U/L Normal 16-63 [facility] Comment on above: Performed By: #### L IPID, LIVER, BMP, TSH #### [facility] [address] [address] [address] Natalie Espinoza AST [Catalytic activity/Vol] 12 U/L Critically low 15-37 [facility] Comment on above: Performed By: #### L IPID, LIVER, BMP, TSH #### [facility] [address] [address] [address] Natalie Espinoza BILI, CONJUGATED 0.1 mg/dL Normal 0.0-0.2 [facility] Comment on above: Performed By: #### L IPID, LIVER, BMP, TSH #### [facility] [address] [address] [address] Natalie Espinoza Bilirubin [Mass/Vol] 0.2 mg/dL Normal 0.2-1.0 [facility] Comment on above: Performed By: #### L IPID, LIVER, BMP, TSH #### [facility] [address] [address] [address] Natalie Espinoza Globulin (S) [Mass/Vol] 3.8 g/dL Normal [facility] Comment on above: Performed By: #### L IPID, LIVER, BMP, TSH #### [facility] [address] [address] [address] Natalie Espinoza Protein [Mass/Vol] 7.8 g/dL Normal 6.4-8.2 [facility] Comment on above: Performed By: #### L IPID, LIVER, BMP, TSH #### [facility] [address] [address] [address] Natalie Espinoza PROF CHEM 8 (BAS METB)on Anion gap [Moles/Vol] 12.4 mmol/L Normal [facility] Comment on above: Performed By: #### L IPID, LIVER, BMP, TSH #### [facility] [address] [address] [address] Natalie Espinoza Calcium [Mass/Vol] 9.1 mg/dL Normal 8.5-10.1 [facility] Comment on above: Performed By: #### L IPID, LIVER, BMP, TSH #### [facility] [address] [address] [address] Natalie Espinoza Chloride [Moles/Vol] 105 mmol/L Normal 98-107 [facility] Comment on above: Performed By: #### L IPID, LIVER, BMP, TSH #### [facility] [address] [address] [address] Natalie Espinoza CO2 [Moles/Vol] 27.8 mmol/L Normal 21.0-32.0 [facility] Comment on above: Performed By: #### L IPID, LIVER, BMP, TSH #### [facility] [address] [address] [address] Natalie Espinoza Creatinine [Mass/Vol] 1.09 mg/dL Normal 0.70-1.30 [facility] Comment on above: Performed By: #### L IPID, LIVER, BMP, TSH #### [facility] [address] [address] [address] Natalie Espinoza EGFR-AF PRYDEINIG >60 Normal >=60 [facility] Comment on above: Performed By: #### L IPID, LIVER, BMP, TSH #### [facility] [address] [address] [address] Natalie Espinoza EGFR-NON AF PRYDEINIG >60 Normal >=60 [facility] Comment on above: Performed By: #### L IPID, LIVER, BMP, TSH #### [facility] [address] [address] [address] Natalie Espinoza Glucose [Mass/Vol] 199 mg/dL Critically high 74-[address] [facility] Comment on above: Performed By: #### L IPID, LIVER, BMP, TSH #### [facility] [address] [place] [address] Dr. Natalie Espinoza Potassium [Moles/Vol] 4.2 mmol/L Normal 3.5-5.1 [facility] Comment on above: Performed By: #### L IPID, LIVER, BMP, TSH #### [facility] [address] [address] [address] Natalie Espinoza Sodium [Moles/Vol] 141 mmol/L Normal 136-145 [facility] Comment on above: Performed By: #### L IPID, LIVER, BMP, TSH #### [facility] [address] [address] [address] Natalie Espinoza Urea nitrogen [Mass/Vol] 12.0 mg/dL Normal 7.0-18.0 [facility] Comment on above: Performed By: #### L IPID, LIVER, BMP, TSH #### [facility] [address] [place] [address] Dr. Natalie Espinoza Urea nitrogen/Creatinine [Mass ratio] 11.0 mg/mg Normal [facility] Comment on above: Performed By: #### L IPID, LIVER, BMP, TSH #### [facility] [address] [address] [address] Natalie Espinoza TSHon 11-24-2021 TSH 1.580 uIU/mL Normal 0.358-3.740 [facility] Comment on above: Performed By: #### L IPID, LIVER, BMP, TSH #### [facility] [address] [address] [address] Natalie Espinoza Vital Signs Date Time Vital Sign Value Performing Clinician Facility 07-31-2024 15:33-0400 Body height 180.3 cm Karoline Moser MD Work Phone: [facility] 07-31-2024 15:33-0400 Body mass index (BMI) [Ratio] 37.24 kg/m2 Karoline Moser MD Work Phone: [facility] 07-31-2024 15:33-0400 Body temperature 96.6 [degF] Karoline Moser MD Work Phone: [facility] 07-31-2024 15:33-0400 Body weight 121.11 kg Karoline Moser MD Work Phone: [facility] 07-31-2024 15:33-0400 Diastolic blood pressure 86 mm[Hg] Karoline Moser MD Work Phone: [facility] 07-31-2024 15:33-0400 Heart rate 86 /min Karoline Moser MD Work Phone: [facility] 07-31-2024 15:33-0400 Respiratory rate 16 /min Karoline Moser MD Work Phone: [facility] 07-31-2024 15:33-0400 SaO2% (BldA) [Mass fraction] 97 % Karoline Moser MD Work Phone: [facility] 07-31-2024 15:33-0400 Systolic blood pressure 150 mm[Hg] Karoline Moser MD Work Phone: [facility] 01-31-2024 15:39-0500 Body height 180.3 cm Karoline Moser MD Work Phone: [facility] 01-31-2024 15:39-0500 Body mass index (BMI) [Ratio] 35.84 kg/m2 Karoline Moser MD Work Phone: [facility] 01-31-2024 15:39-0500 Body temperature 96.4 [degF] Karoline Moser MD Work Phone: [facility] 01-31-2024 15:39-0500 Body weight 116.57 kg Karoline Moser MD Work Phone: [facility] 01-31-2024 15:39-0500 Diastolic blood pressure 72 mm[Hg] Karoline Moser MD Work Phone: [facility] 01-31-2024 15:39-0500 Heart rate 84 /min Karoline Moser MD Work Phone: [facility] 01-31-2024 15:39-0500 Respiratory rate 18 /min Karoline Moser MD Work Phone: [facility] 01-31-2024 15:39-0500 SaO2% (BldA) [Mass fraction] 96 % Karoline Moser MD Work Phone: [facility] 01-31-2024 15:39-0500 Systolic blood pressure 120 mm[Hg] Karoline Moser MD Work Phone: [facility] 03-28-2023 10:45-0500 Body height 180.34 cm Shirin Flanagan Other [facility] Other 03-28-2023 10:45-0500 Body mass index (BMI) [Ratio] 36.31 kg/m2 Shirin Flanagan Other [facility] Other 03-28-2023 10:45-0500 Body temperature 97.8 [degF] Shirin Flanagan Other [facility] Other 03-28-2023 10:45-0500 Body weight 118.12 kg Shirin Flanagan Other [facility] Other 03-28-2023 10:45-0500 Respiratory rate 18 /min Shirin Flanagan Other [facility] Other 03-28-2023 10:45-0500 SaO2% (BldA) [Mass fraction] 99 % Shirin Flanagan Other [facility] Other Encounters Encounter Date Encounter Type Care Provider Facility Start: 07-31-2024 End: 07-31-2024 Office outpatient visit 25 minutes Karoline Moser MD Work Phone: [facility] Comment on above: Type 2 diabetes genie itus with hyperglycemia, without long-term current use of insulin (CMS/HCC) (Primary Dx); Benign hypertension (CMS/HCC); Gastroesophageal reflux disease without esophagitis; Seasonal allergic rhinitis due to pollen Start: 07-31-2024 End: 07-31-2024 ambulatory KAROLINE MOSER Not Available Start: 07-31-2024 End: 07-31-2024 Bamboo flowsheet Karoline Moser MD Work Phone: [facility] Start: 07-31-2024 End: 07-31-2024 Bamboo flowsheet Karoline Moser MD Work Phone: [facility] Start: 05-16-2024 End: 05-17-2024 Refill Vijaya Olson NP Work Phone: [facility] Comment on above: Dyslipidemia (CMS/HC C) Start: 02-17-2024 End: 02-17-2024 Clinisync Result Encounter Karoline Moser MD Work Phone: [facility] Unsolicited Start: 02-17-2024 End: 02-17-2024 Clinisync Result Encounter Karoline Moser MD Work Phone: [facility] Unsolic[facility] Start: 01-31-2024 End: 01-31-2024 Periodic preventive med est patient 40-64yrs Karoline Moser MD Work Phone: [facility] Comment on above: Annual physical exam (Primary Dx); Vasomotor rhinitis; Acute non-recurrent pansinusitis; Class 2 severe obesity due to excess calories with serious comorbidity and body mass index (BMI) of 35.0 to 35.9 in adult ([facility]); Type 2 diabetes mellitus with hyperglycemia, without long-term current use of insulin ([facility]); Dyslipidemia ([facility]) Start: 01-31-2024 End: 01-31-2024 ambulatory KAROLINE MOSER Not Available Start: 01-31-2024 End: 01-31-2024 Bamboo flowsheet Karoline Moser MD Work Phone: [facility] Start: 01-31-2024 End: 01-31-2024 [employer] Karoline Moser MD Work Phone: [facility] Start: 01-31-2024 End: 01-31-2024 Patient encounter procedure Karoline Moser MD Work Phone: [facility] Start: 08-11-2023 End: 08-11-2023 ambulatory KAROLINE MOSER Not Available Start: 03-28-2023 End: 03-28-2023 ambulatory Shirin Flanagan Other [employer] Other Start: 03-28-2023 Office outpatient ne w 20 minutes Shirin Flanagan [facility] Start: 06-19-2022 End: 06-20-2022 ambulatory KAROLINE MOSER Facility:[facility] Start: 11-29-2021 Encounter for genera l adult medical examination without abnormal findings KAROLINE MOSER [facility] Start: 11-24-2021 End: 11-25-2021 ambulatory KAROLINE MOSER Facility:[facility] Start: 11-24-2021 End: 11-25-2021 Encounter for general adult medical examination without abnormal findings KAROLINE MOSER Facility:[facility] Procedures Date Procedure Procedure Detail Performing Clinician Start: 02-17-2024 ALL CBC WITH AUTO DIFF Karoline Moser MD Work Phone: Start: 11-24-2021 PSA screening KAROLINE KAUR Comment on above: Performed By: #### [facility] #### [facility] [address] [place] [address] Dr. Natalie Espinoza Start: 06-06-2019 Colonoscopy Karoline castellanos MD Work Phone: Plan of Treatment Date Care Activity Detail Author Start: 06-05-2029 Screening for malign ant neoplasm of colon [facility] Start: 11-19-2024 Influenza vaccination Influenz a Vaccine (Season Ended) [facility] Start: 11-06-2024 End: 11-06-2024 Patient encounter procedure 11/06/2024 3:30 PM EDT Office Visit [facility] [address] [place] [address] Karoline Moser MD [address] [place] [phone] [facility] Start: 08-23-2024 Glaucoma screening Diabetes: R etinopathy Screening [facility] Start: 08-17-2024 Urine screening for protein Diabetes: Urine Protein Screening [facility] Start: 07-31-2024 End: 07-31-2024 Patient encounter procedure [facility] Comment on above: Arrived Start: 07-31-2024 End: 07-31-2025 Hemoglobin A1c/Hemoglobin.total in Blood Hemoglobin A1c Lab Routine Type 2 diabetes mellitus with hyperglycemia, without long-term current use of insulin ([facility]) Expected: 07/31/2024 (Approximate), Expires: 07/31/2025 [facility] Comment on above: Expected: 07/31/2024 (Approximate), Expires: 07/31/2025 Start: 07-31-2024 End: 07-31-2025 Microalbumin/Creatinine panel in random Urine Microalbumin / creatinine, urine ratio Lab Routine Type 2 diabetes mellitus with hyperglycemia, without long-term current use of insulin ([facility]/HCC) Expected: 07/31/2024 (Approximate), Expires: 07/31/2025 [facility] Work Phone: Comment on above: Expected: 07/31/2024 (Approximate), Expires: 07/31/2025 Start: 02-18-2024 Hemoglobin A1c measurement Diabetes: Hemoglobin A1C [facility] Start: 01-31-2024 End: 01-30-2025 Basic metabolic 1998 panel - Serum or Plasma Basic metabolic panel Lab Routine Annual physical exam Expected: 01/31/2024 (Approximate), Expires: 01/30/2025 [facility] Comment on above: Expected: 01/31/2024 (Approximate), Expires: 01/30/2025 Start: 01-31-2024 End: 01-30-2025 CBC W Auto Differential panel - Blood CBC and differential Lab Routine Annual physical exam Expected: 01/31/2024 (Approximate), Expires: 01/30/2025 [facility] Comment on above: Expected: 01/31/2024 (Approximate), Expires: 01/30/2025 Start: 01-31-2024 End: 01-30-2025 Hemoglobin A1c/Hemoglobin.total in Blood Hemoglobin A1c Lab Routine Annual physical exam Expected: 01/31/2024 (Approximate), Expires: 01/30/2025 [facility] Work Phone: Comment on above: Expected: 01/31/2024 (Approximate), Expires: 01/30/2025 Start: 01-31-2024 End: 01-30-2025 Hepatic function 2000 panel - Serum or Plasma Hepatic function panel Lab Routine Annual physical exam Expected: 01/31/2024 (Approximate), Expires: 01/30/2025 [facility] Comment on above: Expected: 01/31/2024 (Approximate), Expires: 01/30/2025 Start: 01-31-2024 End: 01-30-2025 Lipid 1996 panel - Serum or Plasma Lipid panel Lab Routine Annual physical exam Expected: 01/31/2024 (Approximate), Expires: 01/30/2025 [facility] Comment on above: Expected: 01/31/2024 (Approximate), Expires: 01/30/2025 Start: 01-31-2024 End: 01-30-2025 Prostate specific Ag [Mass/volume] in Serum or Plasma PSA Lab Routine Annual physical exam Expected: 01/31/2024 (Approximate), Expires: 01/30/2025 [facility] Comment on above: Expected: 01/31/2024 (Approximate), Expires: 01/30/2025 Start: 01-31-2024 End: 01-30-2025 Thyrotropin [Units/volume] in Serum or Plasma TSH Lab Routine Annual physical exam Expected: 01/31/2024 (Approximate), Expires: 01/30/2025 [facility] Comment on above: Expected: 01/31/2024 (Approximate), Expires: 01/30/2025 Start: 11-20-2023 Influenza vaccination Influenza Vacc ine (#1) [facility] Start: 1965 Screening for malign ant neoplasm of colon [facility] Immunizations Immunization Date Immunization Notes Care Provider Fa cility 01-15-2022 Pneumococcal Conjuga te PCV 20 Karoline Moser MD Work Phone: [facility] 01-15-2022 influenza virus vacc ine, unspecified formulation Karoline Moser MD Work Phone: [facility] Payers Date Payer Category Payer Private Health Insurance [employer] [id number] 2023 Unknown [id number] 1965 Unknown [id number] 1965 Unknown [id number] 1965 Unknown [id number] 1965 Unknown [id number] 1965 Unknown [id number] 1959 Unknown [id number] 1959 Unknown [id number] Social History Date Type Detail Facility Unknown if ever smoked [facility] Other Start: 07-28-2023 End: 07-31-2024 Sex Assigned At [facility] Start: 02-17-2023 Tobacco smoking status RIIS Ex-smoker [facility] End: 03-21-2011 History of tobacco use Current smoker [facility] End: 03-21-2011 History of tobacco use Cigarette Smoker [facility] Start: 02-17-2023 Tobacco use and exposure Smokeless tobacco non-user [facility] Start: 01-31-2024 End: 07-31-2024 Alcoholic beverage intake Ex-drinker (finding) [facility] Start: 07-28-2023 End: 07-31-2024 History of Social function [facility] Do you belong to any clubs or organizations such as mosque groups, unions, fraternal or athletic groups, or [...] [facility] History of Present illness Narrative 07-31-2024 Karoline Moser MD - 07/31/2024 6:16 PM Braulio Moser MD - 07/31/2024 6:16 PM Braulio Moser MD - 07/31/2024 6:16 PM EDVincenzo Moser MD - 07/31/2024 6:16 PM EDT Note Date & Type Note Facility 07-31-2024 History of Presen t illness Narrative Associated Problem(s): Type 2 diabetes mellitus with hyperglycemia, without long-term current use of insulin (CMS/HCC) Not checking BS and due for A1C. Stick to ADA diet and limit carbs. Associated Problem(s): Seasonal allergic rhinitis due to pollen Symptoms controlled with ipratropium nasal and continue. Associated Problem(s): Gastroesophageal reflux disease Symptoms controlled with omeprazole and continue. Associated Problem(s): Benign hypertension ([facility]) BP controlled and monitor PRN. Images from the original note were not included. Subjective Patient ID: Broderick Palma is a 59 y.o. male who presents for Follow-up (6m). Follow up DM, HTN, allergies, and GERD. Patient feels well today. Not checking BS away from office. Tries to eat well and stick to ADA diet but report occasional splurges. Denies signs of elevated BS such as polyuria, polyphagia or polydipsia. Checking BP PRN and typically controlled. BP normal today. Taking medication daily and tolerating without side effects. GERD controlled with omeprazole. Denies epigastric pain or burning and not waking up with symptoms. Allergies controlled with medication. No congestion or rhinorrhea. No KAUFMAN or sinus pressure. Ears not plugged or popping. Review of Systems Constitutional: Negative for fatigue. [...] There is no guarding or rebound. Musculoskeletal: Left lower leg: No edema. Neurological: Mental Status: He is alert. Assessment/Plan Problem List Items Addressed This Visit Type 2 diabetes mellitus with hyperglycemia, without long-term current use of insulin (CMS/HCC) - Primary Not checking BS and due for A1C. Stick to ADA diet and limit carbs. Relevant Orders Microalbumin / creatinine, urine ratio Hemoglobin A1c Benign hypertension (CMS/HCC) BP controlled and monitor PRN. Seasonal allergic rhinitis due to pollen Symptoms controlled with ipratropium nasal and continue. Gastroesophageal reflux disease Symptoms controlled with omeprazole and continue. documented in this encounter [facility] History of Present illness Narrative 01-31-2024 Karoline Moser MD - 01/31/2024 4:55 PM Dusty Moser MD - 01/31/2024 4:55 PM Dusty Moser MD - 01/31/2024 4:54 PM Dusty Moser MD - 01/31/2024 4:52 PM EST Note Date & Type Note Facility 01-31-2024 History of Presen t illness Narrative Associated Problem(s): Dyslipidemia ([facility]) Due for labs. Associated Problem(s): Type 2 diabetes mellitus with hyperglycemia, without long-term current use of insulin ([facility]) Due for A1C Associated Problem(s): Class 2 severe obesity due to excess calories with serious comorbidity and body mass index (BMI) of 35.0 to 35.9 in adult ([facility]) Weight down 12 pounds in past year. [...] 50 MG tablet documented in this encounter [facility] Evaluation note 03-28-2023 Note Date & [...] Jock itch home care material was printed [employer] Other Evaluation note Note Date & Type Note Facility Evaluation note Diagnosis Type 2 diabetes mellitus with hyperglycemia, without long-term current use of insulin ([facility])- Primary Benign hypertension (CMS/[facility]) Essential hypertension, benign Gastroesophageal reflux disease without esophagitis Esophageal reflux Vasomotor rhinitis Allergic rhinitis, cause unspecified Annual physical exam- Primary Routine general medical examination at a health care facility Vasomotor rhinitis Allergic rhinitis, cause unspecified Acute non-recurrent pansinusitis Class 2 severe obesity due to excess calories with serious comorbidity and body mass index (BMI) of 35.0 to 35.9 in adult ([facility]) Type 2 diabetes mellitus with hyperglycemia, without long-term current use of insulin ([facility]) Dyslipidemia ([facility]) Other and unspecified hyperlipidemia documented in this encounter [facility] Evaluation note Note Date & Type Note Facility Evaluation note Diagnosis Type 2 diabetes mellitus with hyperglycemia, without long-term current use of insulin ([facility])- Primary Benign hypertension ([facility]) Essential hypertension, benign Gastroesophageal reflux disease without esophagitis Esophageal reflux Vasomotor rhinitis Allergic rhinitis, cause unspecified Annual physical exam- Primary Routine general medical examination at a health care facility Vasomotor rhinitis Allergic rhinitis, cause unspecified Acute non-recurrent pansinusitis Class 2 severe obesity due to excess calories with serious comorbidity and body mass index (BMI) of 35.0 to 35.9 in adult ([facility]) Type 2 diabetes mellitus with hyperglycemia, without long-term current use of insulin ([facility]) Dyslipidemia ([facility]) Other and unspecified hyperlipidemia Dyslipidemia ([facility]) Other and unspecified hyperlipidemia documented in this encounter [facility] Evaluation note Note Date & Type Note Facility Evaluation note Diagnosis Type 2 diabetes mellitus with hyperglycemia, without long-term current use of insulin ([facility])- Primary Benign hypertension ([facility]) Essential hypertension, benign Gastroesophageal reflux disease without esophagitis Esophageal reflux Vasomotor rhinitis Allergic rhinitis, cause unspecified Annual physical exam- Primary Routine general medical examination at a health care facility Vasomotor rhinitis Allergic rhinitis, cause unspecified Acute non-recurrent pansinusitis Class 2 severe obesity due to excess calories with serious comorbidity and body mass index (BMI) of 35.0 to 35.9 in adult ([facility]) Type 2 diabetes mellitus with hyperglycemia, without long-term current use of insulin ([facility]) Dyslipidemia ([facility]) Other and unspecified hyperlipidemia Type 2 diabetes mellitus with hyperglycemia, without long-term current use of insulin ([facility])- Primary Benign hypertension ([facility]) Essential hypertension, benign Gastroesophageal reflux disease without esophagitis Esophageal reflux Seasonal allergic rhinitis due to pollen documented in this encounter [facility] History general Narrative - Reported Note Date & Type Note Facility History general Narrative - Reported Type Medical History high blood pressure Medical History high cholesterol Surgical History hand surgery right thumb Hospitalization History See Above [facility] Other Summary Purpose Family History No Family History Records FoundNo Family History Records Found Advance Directives No Advanced Directives Records FoundNo Advanced Directives Records Found Additional Source Comments (unrecognized sect ion and content) No Status Records FoundNo Status Records Found INFORMATION SOURCE (unrecogn ized section and content) DATE CREATED AUTHOR 06/26/2022 [facility] DATE CREATED AUTHOR AUTHOR'S ORGANIZ ATION 08/01/2024 [facility] EPIC REASON FOR VISIT (unrecogniz ed section and content) Reason Comments Follow-up 6 m Sinusitis Ongoing for about 4 weeks Reason Comments Med Refill Reason Comments Follow-up 6m Care Teams (unrecognized sec tion and content) Chair Springer Relationship Specialty Start Date End Date Karoline Moser MD [address] [place] [phone] PCP - General Family Medicine 08/11/23 Chair Springer Relationship Specialty Start Date End Date Karoline Moser MD [address] [place] [phone] PCP - General Family Medicine 08/11/23 Chair Springer Relationship Specialty Start Date End Date Karoline Moser MD [address] [place] [phone] PCP - General Family Medicine 08/11/23 Chair Springer Relationship Specialty Start Date End Date Karoline Moser MD [address] [place] [phone] PCP - General Family Medicine 08/11/23 FOR [...] BE BASED ON THE PRIMARY CLINICAL RECORDS. [facility]. provides no warranty or guarantee of the accuracy or completeness of information in this document.
--- OUTSIDE RECORDS SUMMARY | 2024-08-24 07:49 | XMS_ITS | Encounter Summary ---
Author Organization [facility] Address [address] [place] [address] Care Team Providers Care Ssas Developer Name Role Phone Walter Pearl MD Primary Care Provider [phone] Reason for Visit * Reason Comments Med Refill Encounter Details Date Type Department Care Team ([facility] st Contact Info) Description 01/17/2024 [facility] [address] [place] [address] Walter Pearl MD [address] [place] [address] Seasonal allergic rhinitis due to pollen Social History Tobacco Use Types Packs/Day Years Used Date Smoking Tobacco: Former Cigarettes Q uit: 2012 Smokeless Tobacco: Never Alcohol Use Standard Drinks/Week Comments Not Currently 0 (1 standard drink = 0.6 oz pur e alcohol) Social Connection and Isolation Panel [NHANES] A nswer Date Recorded In a typical week, how many times do you talk on the phone with family, friends, or neighbors? Three times a week 07/28/19 How often do you get togethe r with friends or relatives? Three times a week 07/28/2023 How often do you attend chur ch or gnosticism services? 1 to 4 times per year 07/28/2023 Do you belong to any clubs o r organizations such as spiritism groups, unions, fraternal or athletic groups, or school groups? No 07/28/2023 Attends Club or Organization Meetings Not on maría e 07/28/2023 Are you , , di vorced, , never , or living with a partner? 07/28/2023 AUDIT-C Answer Date Recorded Q1: How often do you have a drink containing alc ohol? 2-4 times a month 07/28/2023 Q2: How many drinks containi ng alcohol do you have on a typical day when you are drinking? 1 or 2 07/28/2023 Q3: How often do you have si x or more drinks on one occasion? Less than monthly 07/28/2023 Overall Financial Resource Strain (CARDIA) Answe r Date Recorded How hard is it for you to pa y for the very basics like food, housing, medical care, and heating? Not very hard 07/28/2023 [facility] [facility] - Occupational Stress Questionnaire Answer Date Recorded Do you feel stress - tense, restless, nervous, or anxious, or unable to sleep at night because your mind is troubled all the time - these days? Not at all 07/28/2023 Exercise Vital Sign Answer Date Recorde d On average, how many days pe r week do you engage in moderate to strenuous exercise (like a brisk walk)? 6 days 07/28/2023 On average, how many minutes do you engage in exercise at this level? 150+ min 07/28/2023 Hunger Vital Sign Answer Date Recorded Worried About Running Out of Food in the Last Ye ar Not on file 07/28/2023 Within the past 12 months, t he food you bought just didn't last and you didn't have money to get more. Never true 07/28/2023 PRAPARE - Transportation Answer Date Re corded In the past 12 months, has l ack of transportation kept you from medical appointments or from getting medications? No 11/2023 In the past 12 months, has l ack of transportation kept you from meetings, work, or from getting things needed for daily living? No 07/28/2023 Housing Stability Vital Sign Answer Onur e Recorded In the last 12 months, was t here a time when you were not able to pay the mortgage or rent on time? No 07/28/2023 In the last 12 months, how many places have you lived? 1 07/28/2023 In the last 12 months, was t here a time when you did not have a steady place to sleep or slept in a half-way (including now)? No 07/28/2023 Sex and Gender Information Value Date Recorded Sex Assigned at Not on file Legal Sex Male 7:33 PM EDT Gender Identity Not on file Sexual Orientation Not on file documented as of this encounter Plan of Treatment Upcoming Encounters Date Type Department Care Team (Late st Contact Info) Description 11/06/2024 3:30 PM EDT [facility] [address] [place] [address] Walter Pearl MD [address] [place] [address] documented as of this encounter Visit Diagnoses Diagnosis Seasonal allergic rhinitis due to pollen documented in this encounter Care Teams Ssas Developer Relationship Specialty Start Date End Date Walter Pearl MD [address] [place] [phone] PCP - General Family Medicine 08/11/23 documented as of this encounter
--- OUTSIDE RECORDS SUMMARY | 2024-08-24 07:49 | XMS_ITS | Clinical Summary ---
Author Organization [employer] tem Address [facility] [id number] [address] [place] [address] Care Team Providers Care Stage Hand Name Role Phone Walter Pearl MD Primary Care Provider [phone] Allergies No known active allergies Medications atorvastatin (LIPITOR) 40 mg tablet Take 40 mg by mouth nightly. 04/15/2019 Active lisinopril (PRINIVIL,ZESTRI L) 20 mg tablet Take 20 mg by mouth daily. 04/15/2019 Active omeprazole (PriLOSEC) 20 mg capsule Take 20 mg by mouth daily. Active cetirizine (ZyrTEC) 10 mg tablet Take 10 mg by mouth daily. Active sodium,potassium ,mag sulfates (SUPREP BOWEL PREP KIT) 17.5-3.13-1.6 gram recon soln 177 ml,actual weight, 2 times daily, Oral 1 kit 05/07/2019 Active Active Problems No known active problems Family History Medical History Relation Name Comments Diabetes Father Heart disease Father Hypertension Father Diabetes Mother Heart disease Mother Hypertension Mother Kidney disease Mother Relation Name Status Comments Father Mother Social History Tobacco Use Types Packs/Day Years Used Date Smoking Tobacco: Former Smokeless Tobacco: Never Comments:QUIT 7 YEARS AGO Alcohol Use Standard Drinks/Week Comments Yes 0 (1 standard drink = 0.6 oz pur e alcohol) SOMETIMES Childcare Answer Date Recorded Childcare Unknown 08/30/2018 Employment Answer Date Recorded Employment Unknown 08/30/2018 Purpose - Life Answer Date Recorded Purpose and direction in life Unknown Sex and Gender Information Value Date Recorded Sex Assigned at Not on file Legal Sex Male 11:39 AM EDT Gender Identity Not on file Sexual Orientation Not on file Last Filed Vital Signs Vital Sign Reading Time Taken Comments Blood Pressure 130/76 05/07/2019 3:44 PM EST Pulse - - Temperature - - Respiratory Rate - - Oxygen Saturation - - Inhaled Oxygen Concentration - - Weight 123.8 kg (273 lb) 05/07/2019 3:44 PM EST Height 180.3 cm (5' 11 ) 05/07/2019 3:44 PM EST Body Mass Index 38.08 05/07/2019 3:44 PM EST Plan of Treatment Health Maintenance Due Date Last Done Comments Depression Screening 1977 Tobacco Screening 1977 Adult BMI Screening 07/14/1983 DTaP,Tdap and Td Vaccines (1 - Tdap) 1984 Zoster (Shingles) Vaccine (1 of 2) 07/14/2015 Influenza Vaccine 11/19/2024 Colonoscopy 06/05/2029 06/06/2019 Medical Devices Not on file Procedures Procedure Name Priority Date/Time Associated Diagnosis Comments COLONOSCOPY Routine 06/06/2019 2:30 PM EDT from Last 3 Months or Most Recently Relevant to Health Maintenance Insurance [employer] Care Teams Stage Hand Relationship Specialty Start Date End Date Walter Pearl MD PCP - General Family Medicine 04/24/19
--- OUTSIDE RECORDS SUMMARY | 2024-08-24 07:49 | XMS_ITS | Encounter Summary ---
Author Organization [facility] Address [address] [facility] [address] Care Team Providers Care Senior Sales Engineer Name Role Phone Walter Pearl MD Primary Care Provider [phone] Reason for Visit * Reason Comments Med Refill Encounter Details Date Type Department Care Team ([facility] st Contact Info) Description 11/14/2023 [facility] [address] [place] [address] Walter Pearl MD [address] [place] [address] Social History Tobacco Use Types Packs/Day Years [...] often do you attend chur ch or jewish services? 1 to 4 times per year 07/28/2023 Do you belong to any clubs o r organizations such as confucianist groups, unions, fraternal or athletic groups, or [...] care, and heating? Not very hard 07/28/2023 [facility] Occupat ional Health - Occupational Stress [...] place to sleep or slept in a alf (including now)? No 07/28/2023 Sex and Gender Information Value Date Recorded Sex Assigned at Not on file Legal Sex Male 7:33 PM EDT Gender Identity Not on file Sexual Orientation Not on file documented as of this encounter Plan of Treatment Upcoming Encounters Date Type Department Care Team (Late st Contact Info) Description 11/06/2024 3:30 PM EDT [facility] [address] [place] [address] Walter Pearl MD [address] [place] [phone] documented as of this encounter Visit Diagnoses Not on filedocumented in this encounter Care Teams Senior Sales Engineer Relationship Specialty Start Date End Date Walter Pearl MD [address] [place] [address] PCP - General Family Medicine 08/11/23 documented as of this encounter
--- OUTSIDE RECORDS SUMMARY | 2024-08-24 07:49 | XMS_ITS | Encounter Summary ---
Author Organization [facility] Address [address] [facility] [place] [address] Care Team Providers Care Dancing Instructor Name Role Phone Walter Pearl MD Primary Care Provider [phone] Reason for Visit * Reason Comments Med Refill Encounter Details Date Type Department Care Team ([facility] st Contact Info) Description 01/17/2024 [facility] [address] [place] [address] Walter Pearl MD [address] [place] [address] Seasonal allergic rhinitis due to pollen Social [...] often do you attend chur ch or yazidism services? 1 to 4 times per year 07/28/2023 Do you belong to any clubs o r organizations such as evangelical groups, unions, fraternal or athletic groups, or [...] care, and heating? Not very hard 07/28/2023 [facility] of Occupat ional Health - Occupational Stress [...] place to sleep or slept in a prison (including now)? No 07/28/2023 Sex and Gender Information Value Date Recorded Sex Assigned at Not on file Legal Sex Male 7:33 PM EDT Gender Identity Not on file Sexual Orientation Not on file documented as of this encounter Plan of Treatment Upcoming Encounters Date Type Department Care Team (Late st Contact Info) Description 11/06/2024 3:30 PM EDT [facility] [address] [place] [address] Walter Pearl MD [address] [place] [address] documented as of this encounter Visit Diagnoses Diagnosis Seasonal allergic rhinitis due to pollen documented in this encounter Care Teams Dancing Instructor Relationship Specialty Start Date End Date Walter Pearl MD [address] [place] [phone] PCP - General Family Medicine 08/11/23 documented as of this encounter
--- OUTSIDE RECORDS SUMMARY | 2024-08-24 07:49 | XMS_ITS | Encounter Summary ---
Author Organization [facility] Address [address] [place] [address] Care Team Providers Care Offset Printing Pressmen Name Role Phone Walter Pearl MD Primary Care Provider [phone] Walter Pearl MD Primary Care Provider [phone] Reason for Visit * Reason Comments Med Refill Encounter Details Date Type Department Care Team ([facility] Contact Info) Description 04/22/2023 Refill [facility] [address] [place] [phone] Walter Pearl MD [address] [place] [address] Seasonal allergic rhinitis due to pollen Social History Tobacco Use Types Packs/Day Years Used Date Smoking Tobacco: Former Cigarettes Q uit: 2012 Smokeless Tobacco: Never Alcohol Use Standard Drinks/Week Comments Not Currently 0 (1 standard drink = 0.6 oz pur e alcohol) Sex and Gender Information Value Date Recorded Sex Assigned at Not on file Legal Sex Male 7:33 PM EDT Gender Identity Not on file Sexual Orientation Not on file documented as of this encounter Plan of Treatment Upcoming Encounters Date Type Department Care Team ([facility] Contact Info) Description 11/06/2024 3:30 PM EDT Office Visit [facility] [address] [place] [address] Walter Pearl MD [address] [place] [address] documented as of this encounter Visit Diagnoses Diagnosis Seasonal allergic rhinitis due to pollen documented in this encounter Care Teams Offset Printing Pressmen Relationship Specialty Start Date End Date Walter Pearl MD PCP - General Family Medicine 01/19/23 08/10/23 Walter Pearl MD [address] [place] [address] PCP - General Family Medicine 08/11/23 documented as of this encounter
--- OUTSIDE RECORDS SUMMARY | 2024-08-24 07:49 | XMS_ITS | Clinical Summary ---
Author Organization [facility] Address [address] [place] [address] Care Team Providers Care Steam Conditioner Filling Name Role Phone Walter Pearl MD Primary Care Provider [phone] Allergies No known active allergies Medications omeprazole OTC (PriLOSEC OTC) 20 MG EC tablet Take 20 mg by mouth in the morning. Take before meals. Do not crush, chew, or split. . Active cetirizine (ZyrTEC) 10 MG tablet Take 10 mg by mouth in the morning. Active ipratropium (Atrovent) 0.06 % nasal sprayIndications :Vasomotor rhinitis Administer 2 sprays into each nostril in the morning and 2 sprays in the evening and 2 sprays before bedtime. 45 mL 5 01/31/20 24 Active atorvastatin (Lipitor) 40 MG tabletIndication s:Dyslipidemia (CMS/HCC) TAKE 1 TABLET BY MOUTH AT BEDTIME 90 tablet 3 05/17/19 25 Active montelukast (Singulair) 10 MG tabletIndication s:Seasonal allergic rhinitis due to pollen TAKE 1 TABLET(10 MG) BY MOUTH AT BEDTIME 30 tablet 1 07/19/19 25 Active lisinopril 20 MG tabletIndication s:Benign hypertension (CMS/HCC) TAKE 1 TABLET BY MOUTH DAILY 30 tablet 5 08/10/19 25 Active lisinopril 20 MG tabletIndication s:Benign hypertension (CMS/HCC) TAKE 1 TABLET BY MOUTH DAILY 30 tablet 5 03/12/20 24 025 Discontinued Active Problems Problem Noted Date Diagnosed Date Annual physical exam 01/31/2024 Assessment & Plan (01/31/2024 4:52 PM EST): Due for labs. Discussed proper diet and regular aerobic exercise. Need aerobic exercise 5-6 days a week for 30 minutes at a time. Smaller portions and limit total calories. Colonoscopy every 10 years. Tetanus every 10 years. Advised not to smoke. Discussed daily Aspirin therapy. Class 2 severe obesity due t o excess calories with serious comorbidity and body mass index (BMI) of 35.0 to 35.9 in adult 01/31/2024 Assessment & Plan (01/31/2024 4:54 PM EST): Weight down 12 pounds in past year. Discussed proper diet and regular aerobic exercise. Recommend Weight Watchers and need to limit calories and smaller portions. Need to increase activity and regular aerobic exercise several days a week for 30 minutes at a time. Dyslipidemia 01/31/2024 Assessment & Plan (01/31/2024 4:55 PM EST): Due for labs. Vasomotor rhinitis 03/30/2023 Assessment & Plan (08/11/2023 9:25 PM EDT): Symptoms controlled with ipratropium nasal and continue. Type 2 diabetes mellitus wit h hyperglycemia, without long-term current use of insulin 02/17/2023 Assessment & Plan (07/31/2024 6:16 PM EDT): Not checking BS and due for A1C. Stick to ADA diet and limit carbs. Assessment & Plan (01/31/2024 4:55 PM EST): Due for A1C Assessment & Plan (08/11/2023 9:25 PM EDT): Not checking BS and due for A1C. Stick to ADA diet and limit carbs. Benign hypertension 02/17/2023 Assessment & Plan (07/31/2024 6:16 PM EDT): BP controlled and monitor PRN. Assessment & Plan (08/11/2023 9:24 PM EDT): BP controlled and monitor PRN. Seasonal allergic rhinitis due to pollen 023 Assessment & Plan (07/31/2024 6:16 PM EDT): Symptoms controlled with ipratropium nasal and continue. Assessment & Plan (08/11/2023 9:25 PM EDT): Symptoms controlled with ipratropium nasal and continue. Flat foot, acquired 02/17/2023 DDD (degenerative disc disease), lumbar 02/18/20 Gastroesophageal reflux disease 02/17/2023 Assessment & Plan (07/31/2024 6:16 PM EDT): Symptoms controlled with omeprazole and continue. Assessment & Plan (08/11/2023 9:24 PM EDT): Symptoms controlled with omeprazole and continue. Resolved Problems Problem Noted Date Diagnosed Date Resolved Date Acute non-recurrent pansinusitis 01/31/2024 07/31/2024 Assessment & Plan (01/31/2024 4:52 PM EST): Take antibiotics BID for 10 days. Use [...] no better or worse call for re-evaluation. Encounters Date Type Department Care Team Description 08/09/2024 Refill [facility] [address] [place] [phone] Walter Pearl MD Benign hypertension ([facility]) 07/31/2024 3:30 PM EDT Office Visit [facility] [address] [place] [address] Walter Pearl MD Type 2 diabetes mellitus with hyperglycemia, without long-term current use of insulin (CMS/HCC) (Primary Dx); Benign hypertension (CMS/HCC); Gastroesophageal reflux disease without esophagitis; Seasonal allergic rhinitis due to pollen 07/31/2024 Bamboo flowsheet [facility] [address] [place] [address] Walter Pearl MD 07/28/2024 Travel 07/18/2024 Refill [facility] [address] [place] [address] Walter Pearl MD Seasonal allergic rhinitis due to pollen from Last 3 Months Immunizations Immunization Administration Dates Next Due Pneumococcal Conjugate PCV 20 01/15/2022 Family History Medical History Relation Name Comments Heart failure Father Diabetes Mother Heart failure Mother Melanoma Neg Hx Relation Name Status Comments Father Mother Social History Tobacco Use Types Packs/Day Years Used Date Smoking Tobacco: Former Cigarettes Q uit: 2012 Smokeless Tobacco: Never Tobacco Cessation:Counseling Given: Yes Alcohol Use Standard Drinks/Week Comments Not Currently [...] often do you attend chur ch or adventism services? 1 to 4 times per year 07/28/2023 Do you belong to any clubs o r organizations such as yarsani groups, unions, fraternal or athletic groups, or [...] care, and heating? Not very hard 07/28/2023 [facility] [place] of Occupat ional Health - Occupational Stress [...] place to sleep or slept in a senior living (including now)? No 07/28/2023 Sex and Gender Information Value Date Recorded Sex Assigned at Not on file Legal Sex Male 7:33 PM EDT Gender Identity Not on file Sexual Orientation Not on file Last Filed Vital Signs Vital Sign Reading Time Taken Comments Blood Pressure 150/86 07/31/2024 3:33 PM EDT Pulse 86 07/31/2024 3:33 PM EDT Temperature 35.9 C (96.6 F) 07/31/2024 3:33 PM EDT Respiratory Rate 16 07/31/2024 3:33 PM EDT Oxygen Saturation 97% 07/31/2024 3:33 PM EDT Inhaled Oxygen Concentration - - Weight 121 kg (267 lb) 07/31/2024 3:33 PM EDT Height 180.3 cm (5' 11 ) 07/31/2024 3:33 PM EDT Body Mass Index 37.24 07/31/2024 3:33 PM EDT Plan of Treatment Upcoming Encounters Date Type Department Care Team (Late st Contact Info) Description 11/06/2024 3:30 PM EDT Office Visit [facility] [address] [place] [address] Walter Pearl MD [address] [place] [address] Health Maintenance Due Date Last Done Comments CT Colonography 1965 FIT-DNA 1965 FIT 1965 FOBT 1965 Sigmoidoscopy 1965 Diabetes: Hemoglobin A1C 02/18/2024 08/18/2023 Diabetes: Urine Protein Screening 08/17/2024 024 Diabetes: Retinopathy Screening 08/23/2024 3 Influenza Vaccine (Season Ended) 2024 01/16/20 22 Colonoscopy 06/05/2029 06/06/2019 Colorectal Cancer Screening 06/05/2029 Insurance [employer] Care Teams Steam Conditioner Filling Relationship Specialty Start Date End Date Walter Pearl MD [address] [facility] [place] [phone] PCP - General Family Medicine 08/11/23
[2024-08-24 08:23] LABS: Creatinine Urine Random 173.25 mg/dL (20.00-300.00); Microalbumin Urine Random <1.3 mg/dL (<=30.0)
[2024-08-24 13:02] LABS: Estimated Average Glucose 154 mg/dL
== END 2024-08-24 07:45 | disposition home or self-care (01) ==
LOC: LAB 07:46
PROVIDERS: PCP Family Medicine; Visit Provider Family Medicine
DX: E11.65 Type 2 diabetes mellitus with hyperglycemia (principal)
CPT/HCPCS: 36415; 82043; 82570; 83036